=== PATIENT | female | born 1940 | race Caucasian/White ===

== ENCOUNTER → 2018-05-07 11:43 | Outpatient (CLI) | payer MEDICARE, MEDICAID, SELFPAY ==
--- NOTE | 2018-05-07 11:52 | XR_ITS ---
XR chest 2V HISTORY: ITS.REASON: COPD EXACERBATION ORDERING PHYSICIAN: Costa Stout MD PATIENT AGE: 77 years COMPARISON: 09/23/2016 FINDINGS: The cardiomediastinal silhouette and pulmonary vascularity are within normal limits. There are chronic changes in the lung bases. No lobar consolidation or collapse. There is a small hiatal hernia. Mild degenerative changes are present in the thoracic spine. impression: No change no acute finding.
== END ==
PROVIDERS: PCP Family Medicine; Visit Provider Family Medicine
DX: J44.1 Chronic obstructive pulmonary disease with (acute) exacerbation (principal)
CPT/HCPCS: 71046

== ENCOUNTER → 2018-10-25 13:53 | Outpatient (CLI) | payer MEDICARE, MEDICAID, SELFPAY ==
[2018-10-25 17:54] LABS: Potassium 5.4 mmoL/L (3.5-5.1)
== END ==
PROVIDERS: Visit Provider Family Medicine
DX: E87.5 Hyperkalemia (principal)
CPT/HCPCS: 84132

== ENCOUNTER → 2019-05-15 11:06 | Outpatient (CLI) | payer MEDICARE, MEDICAID, SELFPAY ==
--- NOTE | 2019-05-15 11:13 | XR_ITS ---
PROCEDURE: XR RIBS RT MIN 3V W CXR1V CLINICAL INDICATION: RT RIB PAIN Right rib pain following injury COMPARISON: CXR CHEST(2 VIEWS-NOT PORTABLE) from 06/29/2015 CXR CHEST(2 VIEWS-NOT PORTABLE) from 09/23/[address] CHEST W/ CONTRAST from 09/30/2016 CXR2V XR chest 2V from 05/07/2018 FINDINGS: Frontal view of the chest shows a hiatal hernia. Normal heart size. No evidence of pneumothorax. Multiple views of the right ribs show no obvious fracture or dislocation or other significant anomaly. IMPRESSION: Negative right ribs Dictated by: Carlton Ghosh MD 05/15/2019 11:50 Electronically signed by Carlton Ghosh MD in [place] 05/15/2019 11:50
--- NOTE | 2019-05-15 11:13 | XR_ITS ---
PROCEDURE: XR WRIST RT MIN 3V CLINICAL INDICATION: RT WRIST PAIN Posttraumatic pain COMPARISON: No exams were available for comparison FINDINGS: No fracture, dislocation, lytic change, or blastic change evident. No significant degenerative change. There are osteoarthritic changes of the 1st metacarpophalangeal joint IMPRESSION: No acute findings. Dictated by: Carlton Ghosh MD 05/15/2019 11:52 Electronically signed by Carlton Ghosh MD in [facility] 05/15/2019 11:52
== END ==
PROVIDERS: PCP Family Medicine; Visit Provider Physician Assistant
DX: R07.81 Pleurodynia (principal); M25.531 Pain in right wrist
CPT/HCPCS: 71101; 73110

== ENCOUNTER → 2019-07-29 15:48 | Outpatient (CLI) | payer MEDICARE, MEDICAID, SELFPAY ==
--- NOTE | 2019-07-29 15:56 | XR_ITS ---
PROCEDURE: XR LUMBAR SPINE MIN 4V CLINICAL INDICATION: RT SIDED SCIATICA Right hip pain, right-sided back pain COMPARISON: ABDPELW CT ABD PELVIS W/ CONTRAST from 07/06/2014 FINDINGS: No acute fracture or dislocation. There is degenerative disc disease from L1-S1. The lumbosacral junction is not well delineated and may be better evaluated with CT or MRI. Facet arthritic changes are present in the lower lumbar spine. Osteoarthritic changes are present involving the right hip IMPRESSION: Degenerative changes, no acute finding. Dictated by: Carlton Ghosh MD 07/29/2019 16:15 Electronically signed by Carlton Ghosh MD in [place] 07/29/2019 16:15
== END ==
PROVIDERS: PCP Family Medicine; Visit Provider Family Medicine
DX: M54.31 Sciatica, right side (principal)
CPT/HCPCS: 72110

== ENCOUNTER → 2019-08-27 09:53 | Outpatient (CLI) | payer MEDICARE, MEDICAID, SELFPAY ==
[2019-08-27 10:06] LABS: Adenovirus,PCR Not Detected (NotDetected); Bordetella Pertussis Not Detected (NotDetected); Chlamydophila Pneumoniae, PCR Not Detected (NotDetected); Coronavirus 229E Not Detected (NotDetected); Coronavirus NL63 Not Detected (NotDetected); Coronavirus OC43 Not Detected (NotDetected); Coronovirus HKU1,PCR Not Detected (NotDetected); Human Metapneumovirus Not Detected (NotDetected); Influenza A, PCR Not Detected (NotDetected); Influenza AH1, 2009 Not Detected (NotDetected); Influenza AH1, PCR Not Detected (NotDetected); Influenza AH3,PCR Not Detected (NotDetected); Influenza B, PCR Not Detected (NotDetected); Mycoplasma Pneumoniae, PCR Not Detected (NotDetected); Parainfluenza 1, PCR Not Detected (NotDetected); Parainfluenza 2, PCR Not Detected (NotDetected); Parainfluenza 3, PCR Not Detected (NotDetected); Parainfluenza 4, PCR Not Detected (NotDetected); Respiratory Syncytial Virus Not Detected (NotDetected); Rhinovirus/Enterovirus Not Detected (NotDetected)
== END ==
PROVIDERS: Visit Provider Family Medicine
DX: J06.9 Acute upper respiratory infection, unspecified (principal); R05 Cough; Z20.828 Contact with and (suspected) exposure to other viral communicable diseases
CPT/HCPCS: 87486; 87581; 87633; 87798

== ENCOUNTER → 2020-01-08 14:52 | Outpatient (CLI) | payer MEDICARE, MEDICAID, SELFPAY ==
--- NOTE | 2020-01-08 | XR_ITS ---
PROCEDURE: XR CHEST AP CLINICAL HISTORY: Cough and congestion, shortness of breath COMPARISON: CXR CHEST(2 VIEWS-NOT PORTABLE) from 09/23/[address] CHEST W/ CONTRAST from 09/30/2016 CXR2V XR chest 2V from 05/07/2018 XR RIBS RT MIN 3V W CXR1V from 05/15/2019 FINDINGS: Borderline cardiomegaly without failure. Hiatal hernia. There is ill-defined increased density in the right upper lobe in the suprahilar region measuring 2.8 by 2.3 cm. The remaining lungs are clear. No acute bony abnormalities. IMPRESSION: Ill-defined increased density in the right suprahilar region. Consider chest CT for further evaluation. Possibilities include scarring, neoplasm, or infiltrate. Dictated by: Carlton Ghosh MD 01/09/2020 08:21 Electronically signed by Carlton Ghosh MD in [place] 01/09/2020 08:21
[2020-01-08 15:24] LABS: Basophils % 0.8 % (0.1-2.0); Eosinophils # 0.2 K/mm3 (0.0-0.4); Eosinophils % 3.1 % (0.1-12.0); Hematocrit 37.5 % (37.0-47.0); Hemoglobin 12.2 g/dL (12.2-16.2); Lymphocytes # 1.9 K/mm3 (0.7-4.5); Lymphocytes % 37.7 % (10-50); Mean Corpuscular HGB Conc 32.4 g/dL (31.8-35.4); Mean Corpuscular Hemoglobin 29.4 pg (27.0-31.2); Mean Corpuscular Volume 90.5 fl (81-99); Mean Platelet Volume 7.3 fl (7.4-10.4); Monocytes # 0.5 K/mm3 (0.1-1.0); Neutrophils # 2.4 K/mm3 (1.8-7.8); Neutrophils % 48.4 % (37.0-80.0); Platelet Count 303 K/mm3 (142-424); Red Blood Count 4.15 M/mm3 (4.20-5.40); Red Cell Distribution Width 12.8 % (11.5-17.5); White Blood Count 4.9 K/mm3 (4.8-10.8)
[2020-01-10 13:33] LABS: Covid-19 Nasal PCR Sendout Lex NOT DETECTED
== END ==
PROVIDERS: PCP Family Medicine; Visit Provider Family Medicine
DX: Z03.818 Encounter for observation for suspected exposure to other biological agents ruled out (principal); R05 Cough; R06.02 Shortness of breath
CPT/HCPCS: 36415; 71045; 85025; U0004

== ENCOUNTER → 2020-01-15 12:00 | Outpatient (CLI) | payer MEDICARE, MEDICAID, SELFPAY | PROVIDERS: PCP Family Medicine; Visit Provider Family Medicine | DX: Z01.818 Encounter for other preprocedural examination (principal) | CPT/HCPCS: 36415; 82565; 84520 ==

== ENCOUNTER → 2020-01-16 13:32 | Outpatient (CLI) | payer MEDICARE, MEDICAID, SELFPAY ==
[2020-01-15 11:38] LABS: Blood Urea Nitrogen 14 mg/dl (7-17); Estimated Glomerular Filt Rate 70 ml/min (>60); GFR (African American) 84 ML/MIN (>60)
--- NOTE | 2020-01-16 13:39 | CT_ITS ---
PROCEDURE: CT CHEST W CON CLINCAL INDICATION: ABN CXR,COUGH Hoarseness, cough, abnormal chest x-ray, shortness of COMPARISON: [facility] CT CHEST W/ CONTRAST from 09/30/2016 XR CHEST AP from 01/08/2020 TECHNIQUE: IV Contrast: 75ml Optiray 350 Axial images obtained with sagittal and coronal reformats. All CT scans at the facility use one or more dose reduction, viz: automated exposure control, ma/kV adjustment per patient size (including targeted exams where dose is matched to indication, i.e. head), or iterative reconstruction technique. FINDINGS: HEART AND MEDIASTINAL STRUCTURES: Coronary artery calcifications are present. No mediastinal or hilar mass is evident. No evidence of pulmonary embolus or aortic aneurysm. There is a moderate-sized hiatal hernia with thickening of the GE junction which is nonspecific. LUNGS AND PLEURAL SPACES: There are scattered atelectatic or fibrotic changes. No lobar consolidation or collapse. No suspicious nodules are evident. The abnormality noted in the suprahilar region on the previous radiograph may have been due to an area of pneumonia which has improved BONY STRUCTURES: No acute bony abnormalities apparent. UPPER ABDOMEN: Degenerative changes thoracic spine with kyphosis ADDITIONAL FINDINGS: No other significant abnormalities. IMPRESSION: 1. No acute finding. Previously noted abnormality on the radiograph may have been due to an area of pneumonia which has resolved. 2. Moderate-sized hiatal hernia Dictated by: Carlton Ghosh MD 01/17/2020 12:26 Electronically signed by Carlton Ghosh MD in [place] 01/17/2020 12:26
== END ==
PROVIDERS: PCP Family Medicine; Visit Provider Family Medicine
DX: R93.89 Abnormal findings on diagnostic imaging of other specified body structures (principal); R05 Cough
CPT/HCPCS: 36415; 71260; 82565; 84520; Q9967

== ENCOUNTER 2020-09-24 06:42 | Observation (INO) | payer MEDICARE, MEDICAID, SELFPAY ==
[2020-09-24] VITALS (25 sets, daily range): BP systolic 114–200; BP diastolic 51–97; PULSE 60–86; RESP 14–22; TEMP 36.6–36.9; O2SAT 90–99; BMI 31.9; BMI 32.9
--- NOTE | 2020-09-24 | IR_ITS ---
APPROVED REPORT Patient Location: Emergent Pattern Setter: SUKHI Gan RT (R) PROCEDURES Left heart catheterization Left ventriculogram Selective coronary angiogram INDICATION Unstable angina Informed consent was obtained prior to the procedure. COMPLICATIONS None Estimated Blood Loss: Less than 10 mls TECHNIQUE One percent lidocaine used to anesthetize the right anterior aspect of the wrist. The right radial artery was accessed via the Seldinger technique. A 6 [place] sheath was placed in the right radial artery. 2.5 mg of verapamil, 800 mcg of nitroglycerin, 1mg Lidocaine and 5000 U Heparin were given through the arterial sheath. The trap catheter was also used to perform left heart catheterization, left ventriculogram and selective coronary angiogram. At the end of the procedure the sheath was removed good hemostasis was achieved using Traclet band, patient was transferred to the postop holding area in stable condition. ANGIOGRAPHIC RESULTS The left main artery Normal The left anterior descending artery Is mild 10% proximal and mid vessel luminal irregularities The circumflex artery Is mild diffuse 10% luminal irregularities The right coronary artery Dominant with mild 10% luminal irregularities The [place] ventriculogram reveals Hyperdynamic at 75% The left ventricular end-diastolic pressure 30 mmHg IMPRESSION Mild nonflow limiting coronary artery disease Hyperdynamic ventricle consistent with diastolic dysfunction accompanied by moderate to severely elevated LVEDP PLAN 1. Treatment of diastolic dysfunction with diuretics and negative chronotropic drugs Electronically signed by : Lewis Dallas, 09/24/2020 09:03:24
--- NOTE | 2020-09-24 06:48 | XR_ITS ---
PROCEDURE: XR CHEST 2V CLINICAL HISTORY: CP Chest pain COMPARISON: DX CXR2V XR chest 2V from 05/07/2018 CR XR RIBS RT MIN 3V W CXR1V from 05/15/2019 CR XR CHEST AP from 01/08/[address] CHEST W CON from 01/16/2020 FINDINGS: The cardiomediastinal silhouette and pulmonary vascularity are within normal limits. Increased markings are once again noted in the right upper lobe having a similar appearance on 01/08/2020. Subsequent chest CT did not demonstrate any significant abnormality at this region. No lobar consolidation or collapse. Thoracic kyphosis IMPRESSION: As above, no acute finding Dictated by: Carlton Ghosh MD 09/24/2020 07:37 Carlton Ghosh MD in [place] 09/24/2020 07:37
[2020-09-24 07:09] LABS: Basophils % 0.4 % (0.1-2.0); Eosinophils # 0.1 K/mm3 (0.0-0.4); Eosinophils % 1.2 % (0.1-12.0); Hematocrit 40.4 % (37.0-47.0); Hemoglobin 13.4 g/dL (12.2-16.2); Lymphocytes # 1.9 K/mm3 (0.7-4.5); Lymphocytes % 18.1 % (10-50); Mean Corpuscular HGB Conc 33.1 g/dL (31.8-35.4); Mean Corpuscular Hemoglobin 29.3 pg (27.0-31.2); Mean Corpuscular Volume 88.4 fl (81-99); Mean Platelet Volume 7.5 fl (7.4-10.4); Monocytes # 0.7 K/mm3 (0.1-1.0); Monocytes % 6.8 % (1.7-9.3); Neutrophils # 7.6 K/mm3 (1.8-7.8); Neutrophils % 73.4 % (37.0-80.0); Platelet Count 300 K/mm3 (142-424); Red Blood Count 4.57 M/mm3 (4.20-5.40); Red Cell Distribution Width 13.4 % (11.5-17.5); White Blood Count 10.3 K/mm3 (4.8-10.8)
--- NOTE | 2020-09-24 07:15 | HMH.EDCP ---
ED Disposition Clinical Impression: Unstable angina pectoris Disposition: Admitted as Observation Condition on Discharge: Good Referrals: Costa Stout MD [Primary Care Provider] - - Critical Care Critical Care Time: No Attestation: On 09/24/20, the high probability of a clinically significant, sudden or life threatening deterioration of the following system(s) required my full and direct attention, intervention and personal management. The time I documented below is in addition to time spent performing reported procedures but includes the following listed in this critical care notation. Medical Decision Making - Medical Records Medical records reviewed: Yes: I reviewed the patient's medical records. - El Inquiry Pt receiving controlled substance: No Vital Signs: 09/24/20 06:43 09/24/20 07:09 Temperature 98.0 F Temperature Source Oral Pulse Rate 73 Pulse Rate [Right] 80 Respiratory Rate 14 Blood Pressure 174/81 H Blood Pressure [Right Arm] 200/97 H Blood Pressure Mean 112 Blood Pressure Mean [Right Arm] 131 02 Sat by Pulse Oximetry 94 L 98 Oxygen Delivery Method Nasal Cannula Oxygen Flow Rate (LPM) 2 - Lab Data Lab results reviewed: Yes: I reviewed the patient's lab results. Lab Results 09/24/20 06:40: WBC 10.3, RBC 4.57, Hgb 13.4, Hct 40.4, MCV 88.4, MCH 29.3, MCHC 33.1, RDW 13.4, Plt Count 300, MPV 7.5, Neut % (Auto) 73.4, Lymph % (Auto) 18.1, [place] % (Auto) 6.8, Eos % (Auto) 1.2, Baso % (Auto) 0.4, Neut # (Auto) 7.6, Lymph # (Auto) 1.9, [place] # (Auto) 0.7, Eos # (Auto) 0.1, Baso # (Auto) 0.0 09/24/20 06:40: Sodium 135 L, Potassium 4.0, Chloride 105, Carbon Dioxide 23, Anion Gap 11.0, BUN 21 H, Creatinine 0.70, Estimated Creat Clear 67, Estimated GFR 81, Est GFR ( Amer) 98, Glucose 113 H, Calcium 9.2, Total Bilirubin 0.7, AST 23, ALT 12, Alkaline Phosphatase 160 H, C-Reactive Protein 9.6 H, Total Protein 7.0, Albumin 4.2, Globulin 2.8, Albumin/Globulin Ratio 1.5 Result diagrams: 09/24/20 06:40 09/24/20 06:40 Orders (Tests/Meds): ED MEDICATIONS Generic Name Dose Route Start Last Admin Trade Name Freq PRN Reason Stop Dose Admin Sodium Chloride 1,000 mls @ 999 mls/hr 09/24/20 07:00 09/24/20 06:54 Sod Chlor 0.9% 1000ml Bag IV 09/24/20 08:00 999 mls/hr .Q1H1M DANISH Administration Nitroglycerin 0.4 mg 09/24/20 06:50 09/24/20 06:51 Nitroglycerin 0.4mg Sl Tablet SL 10/24/20 06:49 0.4 mg Q5MINP PRN Administration Chest Pain Discontinued Medications Generic Name Dose Route Start Last Admin Trade Name Freq PRN Reason Stop Dose Admin Aspirin 324 mg 09/24/20 06:50 09/24/20 06:51 Aspirin 81mg Chewable Tablet PO 09/24/20 06:51 324 mg ONCE ONE Administration Morphine Sulfate 4 mg 09/24/20 07:27 Morphine 4mg/Ml Syringe IV 09/24/20 07:28 ONCE ONE Nitroglycerin 1 gm 09/24/20 06:56 09/24/20 06:57 Nitroglycerin 1 Gm Ointment TD 09/24/20 06:57 1 gm ONCE ONE Administration Ondansetron HCl 4 mg 09/24/20 07:27 Ondansetron 4mg/2ml Vial IV 09/24/20 07:28 ONCE ONE ORDERS Category Date Time Status Chest XR 2 view (NOT portable) [XR chest 2V] Stat Exams 09/24/20 06:48 Taken C-Reactive Protein Stat Lab 09/24/20 06:40 Results Complete Blood Count Auto Diff Stat Lab 09/24/20 06:40 Results Comprehensive Metabolic Panel Stat Lab 09/24/20 06:40 Results Erythrocyte Sedimentation Rate Stat Lab 09/24/20 06:40 Results Full Resp Panel w/COVID ([facility]) Routine Lab 09/24/20 07:10 Received Procalcitonin Stat Lab 09/24/20 06:40 Received Troponin I Q3H Lab 09/24/20 10:00 Ordered Troponin I Q3H Lab 09/24/20 13:00 Ordered Troponin I Stat Lab 09/24/20 06:40 Results - Radiology Data #1 Image(s): Chest Image Reviewed: Yes I reviewed the patient's radiology image Preliminary Findings: Normal/NAD - ECG Data Tracing #1 Normal Sinus Rhythm: Yes Ischemic changes: non-specific ST-T wave changes
[2020-09-24 07:17] LABS: Alanine Aminotransferase 12 U/L (12-78); Albumin Level 4.2 g/dl (3.5-5.0); Albumin/Globulin Ratio 1.5 (1.1-1.8); Alkaline Phosphatase 160 U/L (38-126); Aspartate Amino Transferase 23 U/L (14-36); Bilirubin,Total 0.7 mg/dl (0.2-1.3); Blood Urea Nitrogen 21 mg/dl (7-17); Calcium 9.2 mg/dl (8.4-10.2); Carbon Dioxide 23 mmol/L (22.0-30.0); Chloride 105 mmol/L (98-107); Creatinine Clearance Estimated 67 mL/min (50-200); Estimated Glomerular Filt Rate 81 ml/min (>60); GFR (African American) 98 ML/MIN (>60); Globulin 2.8 g/dL (1.3-3.2); Glucose 113 mg/dl (74-100); Sodium 135 mmol/L (136-145)
[2020-09-24 07:19] LABS: Adenovirus,PCR Not Detected (NotDetected); Bordetella Pertussis Not Detected (NotDetected); Chlamydophila Pneumoniae, PCR Not Detected (NotDetected); Coronavirus 19, PCR Not Detected (NotDetected); Coronavirus 229E Not Detected (NotDetected); Coronavirus NL63 Not Detected (NotDetected); Coronavirus OC43 Not Detected (NotDetected); Coronovirus HKU1,PCR Not Detected (NotDetected); Human Metapneumovirus Not Detected (NotDetected); Influenza A, PCR Not Detected (NotDetected); Influenza AH1, 2009 Not Detected (NotDetected); Influenza AH1, PCR Not Detected (NotDetected); Influenza AH3,PCR Not Detected (NotDetected); Influenza B, PCR Not Detected (NotDetected); Mycoplasma Pneumoniae, PCR Not Detected (NotDetected); Parainfluenza 1, PCR Not Detected (NotDetected); Parainfluenza 2, PCR Not Detected (NotDetected); Parainfluenza 3, PCR Not Detected (NotDetected); Parainfluenza 4, PCR Not Detected (NotDetected); Respiratory Syncytial Virus Not Detected (NotDetected); Rhinovirus/Enterovirus Not Detected (NotDetected)
[2020-09-24 07:23] LABS: C-Reactive Protein 9.6 mg/L (0-4)
--- NOTE | 2020-09-24 07:25 | PC.NURSE ---
7 mins left on the trop per jessie in lab
--- NOTE | 2020-09-24 07:29 | PC.NURSE ---
dr do noonan
[2020-09-24 07:33] LABS: Troponin I < 0.01 ng/ml (0.00-0.034)
--- NOTE | 2020-09-24 07:35 | PC.NURSE ---
Dr Rosales speaking with Dr Dallas.
[2020-09-24 07:36] LABS: Procalcitonin 0.059 ng/mL (0.0-2.0)
--- NOTE | 2020-09-24 07:39 | PC.NURSE ---
dr vizcarra spoke with dr lei
[2020-09-24 07:44] LABS: Erythrocyte Sedimentation Rate 20 mm/hr (0-30)
--- NOTE | 2020-09-24 07:51 | PC.NURSE ---
pt and family at bedside updated on plan of care
--- NOTE | 2020-09-24 07:54 | PC.NURSE ---
label press operator called and informed that dr welch wants pt to label press operator first this am
--- NOTE | 2020-09-24 08:00 | PC.NURSE ---
prepped patient for medical lab scientist per hospital procedure
--- NOTE | 2020-09-24 08:07 | PC.NURSE ---
catholic priest staff at bedside
--- NOTE | 2020-09-24 08:11 | PC.NURSE ---
Pt to agricultural labor camp manager.
--- NOTE | 2020-09-24 08:13 | CA_ITS ---
APPROVED REPORT EXAM: Comprehensive 2D, Doppler, and color-flow Echocardiogram Bakery Machine Mechanic Supervisor: Carey Torres, MARGARET, RVS Ht: 5 ft 6 in Wt: 198lbs BSA: 1.99 BP: 174/81 mmHg Indications: CP,HTN,HLD,+Family hx-cad, S/p cardiac cath 2D Dimensions IVSd 1.07 cm LVEF (Visual) 56.40 % PWd 1.07 cm LA Volume 59.40 mL LVDd 4.81 cm LA Volume Index 29.80 mL/m2 (M/F) 16-34 LVDs 3.39 cm Aortic Root 2.68 cm Left Atrium 3.14 cm LVOT 1.77 cm (M/F) 1.5-2.5 M-Mode Dimensions LA Diam 5.13 cm (1.9-4.0) Ao Diam 2.82 cm (2.0-3.7) TAPSE 1.52 (<1.7) LV Diastology E Decel Time 283.00 (160-240 msec) E/A Ratio 0.81 MED E' 7.10 (< 7 cm/sec) MED A' 9.10 cm/s E'/MED E' Ratio 8.08 (>14) LAT E' 7.60 (<10 cm/sec) LAT A' 10.90 cm/s E/LAT E' Ratio 7.55 (>14) Aortic Valve AO Peak GR. 8.10 mmHg Mitral Valve MV E Max Richard. 57.00 (40-130 cm/s) MV A Velocity 71.00 (40-130 cm/s) E/A Ratio 0.81 MV Decel. Time 283.00 (160-240 ms) MV Mean Gr. 1.20 (<2mmHg) MV PHT 83.00 ms Pulmonary Valve PV Peak Velocity 88.00 (50-150 cm/s) Tricuspid Valve TR P. Velocity 254.00 cm/s RAP Estimate 10.00 mmHg RVSP 35.80 mmHg Left Ventricle Technically difficult study because of the patient fact in poor acoustic windows. Left atrium is mildly enlarged, left ventricle is normal size, there is mild concentric left ventricular hypertrophy, visually estimated ejection fraction 50% with no regional wall motion abnormality, grade 1 diastolic dysfunction seen without tissue Doppler evidence of raise left atrial pressure. Right Ventricle Right atrium and right ventricle are mildly enlarged with normal contractility. Aortic Valve Aortic valve is minimally thickened and fibrosed, there is no aortic stenosis or aortic insufficiency. Mitral Valve Mitral valve is grossly normal, there is mild mitral regurgitation. Tricuspid Valve Tricuspid grossly normal, there is mild tricuspid regurgitation, calculated right ventricular systolic pressure is 36 mmHg. Pulmonic Valve Pulmonic valve is poorly visualized. Great Vessels Aortic root is normal size. Pericardium No significant pericardial effusion noted. Conclusion 1. Biatrial enlargement, normal left ventricular size, mild concentric left ventricular hypertrophy, visually estimated ejection fraction 50% with no regional wall motion abnormality, grade 1 diastolic dysfunction seen without tissue Doppler evidence of raise left atrial pressure. 2. Mildly enlarged right ventricle with normal contractility. 3. Mild mitral and tricuspid regurgitation, calculated right ventricular systolic pressure 36 mmHg. 4. No significant pericardial effusion noted. Electronically signed by : Narinder Peguero, 09/24/2020 16:34:04
--- NOTE | 2020-09-24 08:21 | HMH.PHAVTE ---
[facility] Pharmacy VTE Monitoring - Patient Demographics Admission date: 09/24/20 Report Date: 09/24/20 Time: 08:21 Allergies/Adverse Reactions: Patient Allergies No Known Allergies Allergy (Unverified 06/20/17 14:26) Height: 1.68 m Weight: 89.811 kg Patient Problems: Current Active Problems Unstable angina pectoris (Acute) - VTE Risk Labs: VTE Related Lab Results Hgb 13.4 g/dL (12.2-16.2) 09/24/20 06:40 Hct 40.4 % (37.0-47.0) 09/24/20 06:40 Plt Count 300 K/mm3 (142-424) 09/24/20 06:40 BUN 21 mg/dl (7-17) H 09/24/20 06:40 Creatinine 0.70 mg/dl (0.52-1.04) 09/24/20 06:40 Estimated Creat Clear 67 mL/min (50-200) 09/24/20 06:40 - Prophylaxis VTE Prophylaxis Ordered?: Yes Types of VTE Prophylaxis: TEDS Knee High Location of Applied Device: Bilateral Lower Extremeties
--- NOTE | 2020-09-24 09:16 | HMH.PHAINT ---
verified home medication list using outpatient pharmacy list and pt interview
--- NOTE | 2020-09-24 09:34 | HMH.CNCARD ---
<Bella Lopez - Last Filed: 09/24/20 09:55> History of Present Illness Consult date: 09/24/20 Requesting physician: Jorje Rosales Consult reason: chest pain Chief complaint: chest pain History of present illness: This is a 79-year-old white female who presented to the emergency department with complaints of chest pain. The patient states that the chest pain woke her up around 230 this morning. She describes it as a sharp, pressure sensation in the substernal aspect of her chest. She states that the pain was constant when it woke her up. She states that this was a moderate pain. The patient states that the pain did not radiate. It was associated with shortness of breath and diaphoresis. She states that the chest pain lasted several hours and did not resolve. She has a history of hypertension and hyperlipidemia. She also has a family history of ischemic heart disease. [facility] History I have reviewed the patient's past medical history: Yes Medical History: Reports:: Hyperlipidemia, Hypertension *Have you ever received a pneumonia vaccine?: Yes *Have you received a flu vaccine this season?: Yes Laterality Cases: Right: Arthroscopy Knee - *Social History Smoking Status: Never smoker Alcohol Intake: never *Occupational Status:: other Housing: other Household Members: other *Travel in the last 8 weeks: None Family Hx:: Coronary Artery Disease Meds Home Medications Medication Instructions Recorded Confirmed Type Ferrous Sulfate [Ferrous Sulfate 325 mg PO BID 09/24/20 09/24/20 History 325mg Tab] Fluticasone Propionate 1 spr NOSTRIL-B DAILY 09/24/20 09/24/20 History Levothyroxine Sodium [Euthyrox] 50 mcg PO DAILY 09/24/20 09/24/20 History Losartan Potassium [Cozaar 100mg 100 mg PO DAILY 09/24/20 09/24/20 History Tablets] Omeprazole [Omeprazole 40mg 40 mg PO DAILY 09/24/20 09/24/20 History Capsule] Pravastatin Sodium [Pravachol 40mg 40 mg PO HS 09/24/20 09/24/20 History Tablet] Propranolol HCl [Propranolol HCl 240 mg PO DAILY 09/24/20 09/24/20 History ER] Umeclidinium Brm/Vilanterol Tr 1 puff IH DAILY 09/24/20 09/24/20 History [Anoro Ellipta 62.5-25 Mcg INH] Allergies Allergy/AdvReac Type Severity Reaction Status Date / Time No Known Allergies Allergy Unverified 06/20/17 14:26 Exam Vital signs and Labs for Last 24 Hours: Temp Pulse Resp BP Pulse Ox 98 F 72 18 115/66 98 09/24/20 09:00 09/24/20 09:21 09/24/20 09:15 09/24/20 09:15 09/24/20 09:15 Laboratory Results - last 24 hr 09/24/20 06:40: WBC 10.3, RBC 4.57, Hgb 13.4, Hct 40.4, MCV 88.4, MCH 29.3, MCHC 33.1, RDW 13.4, Plt Count 300, MPV 7.5, Neut % (Auto) 73.4, Lymph % (Auto) 18.1, [place] % (Auto) 6.8, Eos % (Auto) 1.2, Baso % (Auto) 0.4, Neut # (Auto) 7.6, Lymph # (Auto) 1.9, [place] # (Auto) 0.7, Eos # (Auto) 0.1, Baso # (Auto) 0.0, ESR 20 09/24/20 06:40: Sodium 135 L, Potassium 4.0, Chloride 105, Carbon Dioxide 23, Anion Gap 11.0, BUN 21 H, Creatinine 0.70, Estimated Creat Clear 67, Estimated GFR 81, Est GFR ( Amer) 98, Glucose 113 H, Calcium 9.2, Total Bilirubin 0.7, AST 23, ALT 12, Alkaline Phosphatase 160 H, Troponin I < 0.01, C-Reactive Protein 9.6 H, Total Protein 7.0, Albumin 4.2, Globulin 2.8, Albumin/Globulin Ratio 1.5 09/24/20 06:40: Procalcitonin 0.059 09/24/20 07:10: Chlamy pneumoniae PCR Not detected, Adenovirus (PCR) Not detected, B. pertussis DNA (PCR) Not detected, Coronavirus OC43 (PCR) Not detected, Coronavirus HKU1 (PCR) Not detected, Coronavirus 229E (PCR) Not detected, SARS-CoV-2 (PCR) Not detected, Coronavirus NL63 (PCR) Not detected, Human Metapneumovir PCR Not detected, Influenza A (H1) PCR Not detected, Influ A (H1N1/09) PCR Not detected, Influenza A (H3) PCR Not detected, Influenza Type A (PCR) Not detected, Influenza Type B (PCR) Not detected, M. pneumoniae (PCR) Not detected, Parainfluenza 1 (PCR) Not detected, Parainfluenza 2 (PCR) Not detected, Parainfluenza 3 (PCR) Not detected, Parain
--- NOTE | 2020-09-24 13:16 | PC.NURSE ---
Dr. Stout was here today at 1:15 to see 201.
--- NOTE | 2020-09-24 13:33 | HMH.HP ---
*Admission Date: 09/24/20 <Lydia Chamorro 09/24/20 13:42> *Chief complaint: chest pain <Lydia Chamorro 09/24/20 13:42> *History of present illness: This is a 79-year-old white female who presented to the emergency department with complaints of chest pain. The patient states that the chest pain woke her up around 230 this morning. She describes it as a sharp, pressure sensation in the substernal aspect of her chest. She states that the pain was constant when it woke her up. She states that this was a moderate pain. The patient states that the pain did not radiate. It was associated with shortness of breath and diaphoresis. She states that the chest pain lasted several hours and did not resolve. She has a history of hypertension and hyperlipidemia. She also has a family history of ischemic heart disease. (above as per Bella Lopez) The patient's blood work was essentially unremarkable. Her troponin I was normal. Her C-reactive protein was mildly elevated at 9.6. She was taken directly to the [facility] due to her symptoms. They found mild nonflow limiting coronary artery disease with a hyperdynamic ventricle consistent with diastolic dysfunction accompanied by a moderate to severely elevated LVEDP. Cardiology recommended treatment of diastolic dysfunction with diuretics and negative chronotropic drugs. The patient was admitted and was given a dose of IV Lasix and started on diltiazem. <GaldinoAng mcclellana 09/24/20 13:42> [facility] History I have reviewed the patient's past medical history: Yes <Pedro PabloAngqasim Lizama 09/24/20 13:42> Medical History: Reports:: Chronic Obstructive Pulmonary Disease (COPD), Hyperlipidemia, Hypertension Denies:: Diabetes Mellitus Type 1, Diabetes Mellitus Type 2 <Lydia Chamorro 09/24/20 13:42> *Have you ever received a pneumonia vaccine?: Yes <Lydia Chamorro 09/24/20 13:42> *Have you received a flu vaccine this season?: Yes <Lydia Chamorro 09/24/20 13:42> Other Medical History: Reports: Anemia, Arthritis <Lydia Chamorro 09/24/20 13:42> Laterality Cases: Right: Arthroscopy Knee <Lydia Chamorro 09/24/20 13:42> Other Surgeries: Yes: Colonoscopy, EGD, Other (left ear skin lesion, breast bx) <Lydia Chamorro 09/24/20 13:42> - *Social History Last grade of school completed: 7th or 8th <Lydia Chamorro 09/24/20 13:42> Smoking Status: Never smoker <Lydia Chamorro 09/24/20 13:42> Alcohol Intake: never <Lydia Chamorro 09/24/20 13:42> *Occupational Status:: retired <Lydia Chamorro 09/24/20 13:42> Housing: house <Lydia Chamorro 09/24/20 13:42> Household Members: family <Lydia Chamorro 09/24/20 13:42> *Travel in the last 8 weeks: None <Lydia Chamorro 09/24/20 13:42> Family Hx:: No significant family history <Lydia Chamorro 09/24/20 13:42> Review of Systems - Constitutional Reports chills, Reports excessive sweating, Reports weakness, Denies fever(s) <Lydia Chamorro 09/24/20 13:42> - Eyes Denies blurry vision, Denies double vision <Lydia Chamorro 09/24/20 13:42> - ENT Reports nasal congestion, Denies sore throat <Lydia Chamorro 09/24/20 13:42> - *Cardiovascular Reports chest pain, Reports shortness of breath, Denies rapid, pounding, or irregular heartbeat <Lydia Chamorro 09/24/20 13:42> - *Respiratory Reports cough, Reports shortness of breath <Lydia Chamorro 09/24/20 13:42> - *Gastrointestinal Denies abdominal pain, Denies loose stools, Denies nausea, Denies vomiting <Lydia Chamorro 09/24/20 13:42> - *Genitourinary Denies difficulty urinating, Denies painful urination <Lydia Chamorro 09/24/20 13:42> - *Musculoskeletal Denies joint pain <Lydia Chamorro 09/24/20 13:42> - *Neurologic Reports headache(s), Reports weakness, Denies localized weakness, Denies seizure-like activity, Denies dizziness <Lydia Chamorro - 09/24/20 13:42> Meds Home Medications Medication Instructions Recorded Confirmed Type Ferrous Sulfate [Ferrous Sulfate 325 mg PO BID 09/24/
--- NOTE | 2020-09-24 18:47 | PC.NURSE ---
PT IS RESTING IN BED. NO COMPLAINTS OF DISCOMFORT. ALERT AND ORIENTED X4. PT HAS BEEN AMBULATING TO THE BATHROOM WITH WALKER. ALL CATH VSS. PT HAS DIURESED WELL THIS SHIFT. LUNG SOUNDS CLEAR. ABDOMEN SOFT/NON TENDER WITH ACTIVE BOWEL SOUNDS. DRESSING TO THE RT RADIAL SITE C/D/I. EATING AND DRINKING WELL. WILL CONTINUE TO MONITOR
--- NOTE | 2020-09-24 21:51 | PC.NURSE ---
Student nurse Courtney Vieyra will be providing care under my supervision.
[2020-09-25] VITALS (15 sets, daily range): BP systolic 90–153; BP diastolic 50–76; PULSE 40–83; RESP 14–18; TEMP 36.4–36.8; O2SAT 94–98; BMI 34.9
--- NOTE | 2020-09-25 | IR_ITS ---
APPROVED REPORT Patient Location: Inpatient Chemistry Intern: SUKHI Anderson RT (R) PROCEDURES 1. Pocket formation for Permanent Pacemaker Placement. 2. Placement of an atrial sensing and pacing coil into the right atrial appendage. 3. Placement of a ventricular sensing and pacing coil in the right ventricular apex. 4. Permanent Pacemaker Placement. INDICATION Paroxysmal Atrial Tachy Informed consent was obtained prior to the procedure. COMPLICATIONS None Estimated Blood Loss: Less than 10 mls TECHNIQUE 1% Lidocaine with epinephrine used to anesthetized the left anterior aspect of the chest. Scalpel was used to make the initial cutaneous incision while electrocautery was used to dissect down tinto the fascia. The fascia was lifted off the pectoralis muscle and digitally manipulated creating a pocket for the pacemaker. The patient was then placed in Trendelenburg position and the subclavian vein was accessed twice via the Selinger technique, there are two wires in the vein. A 6 Thai sheath was placed under fluoroscopic guidance into the subclavian vein over one of the wires while keeping the other wire in place within the subclavian vein. The dilator was removed from the sheath. Using fluoroscopic guidance, the ventricular lead was placed into the right ventricular apex, screwed and secured into place. Electronic interrogation proved acceptable thresholds and voltage within the lead. Using 3-0 silk, the ventricular lead was then secured into place. Lead was secured to the facia using the 3-0 silk. Following this, the sheath was pealed away. An additional 6 Thai fresh sheath and dilator was placed over the existing wire. Using fluoroscopic guidance, the atrial lead was the placed into the right atrial appendage and screwed and secured in place. Electrical interrogation demonstrated acceptable thresholds and voltage number. The atrial lead was then secured into place using 3-0 silk. 1 gram of Ancef was used to flush the pocket. Following the pacemaker generator being secured to the fascia and in place, Monocryl was used to close the subcutaneous layers while maddie were used to close the cutaneous layer. A pressure dressing was placed and the patient was transferred to the postop holding area in stable condition for postoperative care. INTERROGATION Generator Model number: ApnaPaisaCARRION DR, L331 Generator Serial number: [id number] Atrial lead model number: INGEVITY+ 45cm, 7840 Atrial lead serial number: [id number] P-wave: 6.0mV Impedence: 637 ohms Threshold: 1.0V@0.4ms Right Ventricular lead model number: INGEVITY+ 52cm, 7841 Right Ventricular lead serial number: [id number] R-wave: 15.0mV Impedence: 850 ohms Threshold: 1.0V@0.4ms Pacing Parameters: Mode: DDDR Base/Max Track: 70/130 ppm No diaphragmatic stimulation at 10 volts. IMPRESSION 1. Successful Pocket formation for Permanent Pacemaker Placement. 2. Successful Placement of an atrial sensing and pacing coil into the right atrial appendage. 3. Successful Placement of a ventricular sensing and pacing coil in the right ventricular apex. 4. Successful Permanent Pacemaker Placement. PLAN 1. follow up office visit, post op wound care Electronically signed by : Lewis Dallas, 09/29/2020 09:12:28
--- NOTE | 2020-09-25 03:54 | ECG_ITS ---
APPROVED REPORT Exam: Resting ECG HR:58 bpm ECG Measurements Heart Rate 58 AXES QRSd 118 QRS -11 QT 472 T 27 QTc 463 Conclusion Atrial fibrillation with slow ventricular response Left ventricular hypertrophy with QRS widening Nonspecific ST abnormality, probably digitalis effect Abnormal ECG Electronically signed by : Alphonse Chang, 09/25/2020 18:11:26
--- NOTE | 2020-09-25 05:33 | PC.NURSE ---
Pt c/o chest pain this am. Pt had previously noted to be in Afib. Pt was asked if she has ever had Afib in her past and she stated no. EKG was obtained and read by ER MD. manager call MD was notified. Pt stated, It feels like pleurisy. New orders received and carried out. Pt was administered toradol 15 mg IV once. Pt states that pain has improved. Pt has been bradycardic in addition to Afib. MD aware. HR noted to be as low as 40 on telemetry. Other VSS. Pt remains on RA. Crackles noted to Stevie bases. Urine output was 600 plus 2 unmeasured voids. She has ambulated to BR without difficulty. No other concerns at this time. Will continue to monitor.
[2020-09-25 07:38] LABS: Anion Gap 12.6 mEq/L (5-15); Blood Urea Nitrogen 19 mg/dl (7-17); Carbon Dioxide 25 mmol/L (22.0-30.0); Chloride 101 mmol/L (98-107); Chol/HDL Ratio 2.5 (1-3.5); Cholesterol 145 mg/dl (140-200); Creatinine Clearance Estimated 64 mL/min (50-200); Estimated Glomerular Filt Rate 54 ml/min (>60); GFR (African American) 65 ML/MIN (>60); Glucose 95 mg/dl (74-100); HDL Cholesterol 59 mg/dl (40-60); Magnesium 1.7 mg/dl (1.6-2.3); Potassium 3.6 mmoL/L (3.5-5.1); Sodium 135 mmol/L (136-145); Triglycerides 76 mg/dl (30-150); VLDL Cholesterol 15 mg/dL (0-40)
[2020-09-25 07:44] LABS: Basophils % 0.4 % (0.1-2.0); Eosinophils # 0.1 K/mm3 (0.0-0.4); Eosinophils % 1.2 % (0.1-12.0); Hematocrit 37.8 % (37.0-47.0); Hemoglobin 12.6 g/dL (12.2-16.2); Lymphocytes # 1.7 K/mm3 (0.7-4.5); Lymphocytes % 20.4 % (10-50); Mean Corpuscular HGB Conc 33.4 g/dL (31.8-35.4); Mean Corpuscular Hemoglobin 29.4 pg (27.0-31.2); Mean Platelet Volume 7.5 fl (7.4-10.4); Monocytes # 0.8 K/mm3 (0.1-1.0); Monocytes % 8.9 % (1.7-9.3); Neutrophils # 5.9 K/mm3 (1.8-7.8); Neutrophils % 69.2 % (37.0-80.0); Platelet Count 257 K/mm3 (142-424); Red Cell Distribution Width 13.4 % (11.5-17.5); White Blood Count 8.5 K/mm3 (4.8-10.8)
[2020-09-25 07:48] LABS: Direct LDL Cholesterol 47.32 mg/dL (100-129)
--- NOTE | 2020-09-25 08:41 | HMH.ACPN2 ---
<Lydia Chamorro - Last Filed: 09/25/20 08:41> Internal Medicine - PN: Subj *Date: 09/25/20 *Time: 08:41 Interval history: Patient states she had a rough night and morning. She went into A. fib and then this morning had some episodes of low blood pressure where she had chest pain, shortness of breath, and dizziness. Right now she is feeling a little bit better. She only ate a small amount of breakfast. She denies any chest pain at the moment. Exam Vital signs and Labs for Last 24 Hours: Temp Pulse Resp BP Pulse Ox 98.0 F 66 18 90/50 L 95 09/25/20 08:00 09/25/20 08:00 09/25/20 08:00 09/25/20 08:00 09/25/20 08:00 Laboratory Results - last 24 hr 09/24/20 07:10: Chlamy pneumoniae PCR Not detected, Adenovirus (PCR) Not detected, B. pertussis DNA (PCR) Not detected, Coronavirus OC43 (PCR) Not detected, Coronavirus HKU1 (PCR) Not detected, Coronavirus 229E (PCR) Not detected, SARS-CoV-2 (PCR) Not detected, Coronavirus NL63 (PCR) Not detected, Human Metapneumovir PCR Not detected, Influenza A (H1) PCR Not detected, Influ A (H1N1/09) PCR Not detected, Influenza A (H3) PCR Not detected, Influenza Type A (PCR) Not detected, Influenza Type B (PCR) Not detected, M. pneumoniae (PCR) Not detected, Parainfluenza 1 (PCR) Not detected, Parainfluenza 2 (PCR) Not detected, Parainfluenza 3 (PCR) Not detected, Parainfluenza 4 (PCR) Not detected, RSV (PCR) Not detected, Entero/Rhino (PCR) Not detected 09/25/20 07:09: WBC 8.5, RBC 4.30, Hgb 12.6, Hct 37.8, MCV 88.0, MCH 29.4, MCHC 33.4, RDW 13.4, Plt Count 257, MPV 7.5, Neut % (Auto) 69.2, Lymph % (Auto) 20.4, [place] % (Auto) 8.9, Eos % (Auto) 1.2, Baso % (Auto) 0.4, Neut # (Auto) 5.9, Lymph # (Auto) 1.7, [place] # (Auto) 0.8, Eos # (Auto) 0.1, Baso # (Auto) 0.0 09/25/20 07:09: Sodium 135 L, Potassium 3.6, Chloride 101, Carbon Dioxide 25, Anion Gap 12.6, BUN 19 H, Creatinine 1.00 D, Estimated Creat Clear 64, Estimated GFR 54 L, Est GFR ( Amer) 65 D, Glucose 95, Calcium 9.0, Magnesium 1.7, Triglycerides 76, Cholesterol 145, LDL Cholesterol Direct 47.32 L, VLDL Cholesterol 15, HDL Cholesterol 59, Cholesterol/HDL Ratio 2.5 I & O for Last 24 hours: Intake & Output 09/22/20 09/23/20 09/24/20 09/25/20 11:59 11:59 11:59 11:59 Intake Total 840 / 840 Output Total 1900 / 1900 Balance -1060 / -1060 Weight 198 lb 190 lb - Constitutional no acute distress - *Routine Respiratory Exam Present: wheezes (faint expiratory wheeze). Absent: rales - *Routine Cardiovascular Exam Present: irregular rhythm - *Routine Abdominal Exam Present: soft, normoactive bowel sounds. Absent: tenderness - *Routine Extremities Exam Absent: cyanosis, clubbing, edema - *Routine Skin Exam Present: warm. Absent: rash - *Routine Neurological Exam Present: alert, oriented X3 Assessment and Plan (1) Chest pain Status: Acute Category: Medical Code(s): R07.9 - Chest pain, unspecified (2) Diastolic dysfunction Status: Acute Category: Medical Code(s): I51.89 - Other ill-defined heart diseases (3) HTN (hypertension) Status: Chronic Category: Medical Code(s): I10 - Essential (primary) hypertension (4) Hyperlipemia Status: Chronic Category: Medical Code(s): E78.5 - Hyperlipidemia, unspecified (5) Obesity Status: Chronic Category: Medical Code(s): E66.9 - Obesity, unspecified (6) Family history of coronary artery disease Status: Chronic Category: Medical Code(s): Z82.49 - Family history of ischemic heart disease and other diseases of the circulatory system (7) Hypotension Status: Acute Category: Medical Code(s): I95.9 - Hypotension, unspecified (8) Atrial fibrillation Status: Acute Category: Medical Code(s): I48.91 - Unspecified atrial fibrillation - Assessment and plan all Dx Assessment and Plan for all problems:: Cardiology has been notified of patient's atrial fib and hypotension. They will adjust medications. <[facility]
--- NOTE | 2020-09-25 10:22 | HMH.PNCARD ---
Subjective Date: 09/25/20 Time: 09:00 Principal diagnosis: Chest pain Interval history: 79-year-old female admitted to [facility] with midsternal chest pain. Patient did undergo left heart catheterization yesterday which revealed mild nonflowing limiting CAD, hyperdynamic ventricle consistent with diastolic dysfunction. LVEDP was moderately to severely elevated. Medical management was noted. Patient was started on Lasix 40 mg IV twice daily for the LVEDP. Patient was also started on diltiazem ER 120 mg daily along with beta-levon due to coronary artery disease. PCP stated this a.m. that patient had had an episode in the [facility] where her heart rate had decreased into the 40s and with her heart rhythm was noted to be in atrial fibrillation. Patient has no history of atrial fibrillation. Patient was also hypotensive at that time. Patient had been complaining of some midsternal chest pain during this episode. Therefore PCP stopped calcium channel levon and beta-levon due to patient's heart rate and hypotension episode. During this assessment patient denies chest pain, tightness or pressure. Patient denies shortness of breath. No swelling noted of the lower extremities. Patient does state at times the chest pain that she was having felt more like a pleurisy pain. 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 EKG was performed which revealed normal sinus rhythm, left ventricular hypertrophic with QRS widening, abnormal ECG with a heart rate of 66 bpm. Echocardiogram was performed yesterday which revealed EF 50% with no regional wall motion abnormality. Mild mitral valve and tricuspid regurgitation. Overall patient states that she is feeling much better. Discussed plan of care with Dr. Dallas. Patient will be set up for a permanent pacemaker today due to tach and bradycardia syndrome. Discussed risk and benefits to the patient of undergoing procedure for PPM placement. Patient verbalized understanding and is agreeable to procedure. Pending on outcome of the PPM, medication changes may be recommended. Echo:Conclusion 1. Biatrial enlargement, normal left ventricular size, mild concentric left ventricular hypertrophy, visually estimated ejection fraction 50% with no regional wall motion abnormality, grade 1 diastolic dysfunction seen without tissue Doppler evidence of raise left atrial pressure. 2. Mildly enlarged right ventricle with normal contractility. 3. Mild mitral and tricuspid regurgitation, calculated right ventricular systolic pressure 36 mmHg. 4. No significant pericardial effusion noted. Thank you for allowing cardiology to participate in the care of this patient. Exam Vital signs and Labs for Last 24 Hours: Temp Pulse Resp BP Pulse Ox 98.0 F 66 18 90/50 L 95 09/25/20 08:00 09/25/20 08:00 09/25/20 08:00 09/25/20 08:00 09/25/20 08:00 Laboratory Results - last 24 hr 09/25/20 07:09: WBC 8.5, RBC 4.30, Hgb 12.6, Hct 37.8, MCV 88.0, MCH 29.4, MCHC 33.4, RDW 13.4, Plt Count 257, MPV 7.5, Neut % (Auto) 69.2, Lymph % (Auto) 20.4, [place] % (Auto) 8.9, Eos % (Auto) 1.2, Baso % (Auto) 0.4, Neut # (Auto) 5.9, Lymph # (Auto) 1.7, [place] # (Auto) 0.8, Eos # (Auto) 0.1, Baso # (Auto) 0.0 09/25/20 07:09: Sodium 135 L, Potassium 3.6, Chloride 101, Carbon Dioxide 25, Anion Gap 12.6, BUN 19 H, Creatinine 1.00 D, Estimated Creat Clear 64, Estimated GFR 54 L, Est GFR ( Amer) 65 D, Glucose 95, Calcium 9.0, Magnesium 1.7, Triglycerides 76, Cholesterol 145, LDL Cholesterol Direct 47.32 L, VLDL Cholesterol 15, HDL Cholesterol 59, Cholesterol/HDL Ratio 2.5 I & O for Last 24 hours: Intake & Output 09/22/20 09/23/20 09/24/20 09/25/20 23:59 23:59 23:59 23:59 Intake Total 480 / 480 360 / 360 Output Total 1300 / 1300 600 / 600 Balance -820 / -820 -240 / -240 Weight 180 lb 190 lb - Constitutional no acute distress, cooperative - *Routine HE
--- NOTE | 2020-09-25 10:39 | ECG_ITS ---
APPROVED REPORT Exam: Resting ECG HR:66 bpm ECG Measurements Heart Rate 66 AXES NV 178 P 26 QRSd 116 QRS -23 QT 444 T 42 QTc 465 Conclusion Normal sinus rhythm Left ventricular hypertrophy with QRS widening Abnormal ECG Electronically signed by : Alphonse Chang, 09/25/2020 18:10:44
--- NOTE | 2020-09-25 15:00 | XR_ITS ---
PROCEDURE: XR CHEST PORTABLE CLINICAL HISTORY: Confirm pacemaker/AID placement COMPARISON: CR XR RIBS RT MIN 3V W CXR1V from 05/15/2019 CR XR CHEST AP from 01/08/[address] CHEST W CON from 01/16/2020 CR XR CHEST 2V from 09/24/2020 FINDINGS: Has been interval insertion of a bipolar pacemaker from left subclavian approach. Right atrial and right ventricular leads are present in good position. There is no evidence of pneumothorax. There is cardiomegaly without failure. The lungs are clear without infiltrates, suspicious nodules, or pleural effusions. Mild osteoarthritic change left shoulder IMPRESSION: Status post pacemaker placement with good lead position and no evidence of pneumothorax Dictated by: Carlton Ghosh MD 09/25/2020 15:40 Carlton Ghosh MD in OV 09/25/2020 15:40
--- NOTE | 2020-09-25 15:31 | HMH.ANESCL ---
[facility] Anesthesia Checklist - Structural Data Admitted From: Home Planned Operative Procedure/s: Pacemaker placement Consent for Planned Operative Procedure(s) Verified: Yes Verified Documents: Surgical Consent, History and Physical - NPO Status Verified Time NPO: 00:00 - Airway Assessment C-Spine Mobility Assessed: Yes TMJ Mobility Assessed: Yes Dentition: Poor Dentition - Neurological Assessment Level of Consciousness: Awake, Alert - Anesthesia Plan Anesthesia Risk discussed: Yes Anesthesia Plan: Verified ASA Class: III Anesthesia Type: MAC [facility] History Medical History: Reports:: Chronic Obstructive Pulmonary Disease (COPD), Hyperlipidemia, Hypertension Denies:: Diabetes Mellitus Type 1, Diabetes Mellitus Type 2 *Have you ever received a pneumonia vaccine?: Yes *Have you received a flu vaccine this season?: Yes Other Medical History: Reports: Anemia, Arthritis Anesthesia experience/problems:: NAC Laterality Cases: Right: Arthroscopy Knee Other Surgeries: Yes: Colonoscopy, EGD, Other (left ear skin lesion, breast bx) - *Social History Last grade of school completed: 7th or 8th Smoking Status: Never smoker Alcohol Intake: never Substance Use Type: denies use *Occupational Status:: retired Housing: house Household Members: family *Travel in the last 8 weeks: None Family Hx:: No significant family history
--- NOTE | 2020-09-25 16:00 | PC.NURSE ---
Pt has been pleasant and cooperative this shift. A&O X4. No complaints of pain or SOA. Pt is post-operative from pacemaker placement. LT chest dressing is C/D/I. Pt is on room air with sats. >90%. Lungs CTA. No edema noted. Telemetry reveals NSR. (No PACER spikes noted thus far) Pt ambulates independently to/from the bathroom and throughout the room. Pt voids clear, yellow urine without issue. No BM this shift. 20 G peripheral IV in the LT AC is patent and SL. VSS. Call light within reach. Will continue to monitor.
--- NOTE | 2020-09-25 21:00 | PC.NURSE ---
pt had no needs,restock gloves in room and snacks. Paulina
[2020-09-26] VITALS: BP 123/69; PULSE 89; PULSE 90; RESP 16; TEMP 36.9; O2SAT 97
[2020-09-26 04:00] VITALS: BP 117/64; PULSE 90; PULSE 96; RESP 16; TEMP 36.8; O2SAT 94
--- NOTE | 2020-09-26 04:30 | PC.NURSE ---
Pt has slept at intervals this shift. Has c/i discomfort to legs and back. Pt states she hasn't been able to get comfortable in bed tonight. Medicated per mar and assisted with repositioning. Incision to (L) side of chest with DSG intact. No drainage. Bruising noted around DSG. Pt has ambulated to BR with walker and assist x1. Pt has tolerated well . Education given on Incision sites. VSS. Pt is sinus with pacer spikes noted. Was noted to be tachycardic this AM, but pt was experiencing pain during period. Pt HR has since decreased after pain medication administered and repositioned in bed. No other concerns at this time. will continue to monitor.
[2020-09-26 05:21] VITALS: BMI 34.9
--- NOTE | 2020-09-26 05:25 | PC.NURSE ---
pt has no needs. Ice water,trash,dirty linen and room straighten up.Paulina
[2020-09-26 07:10] LABS: Basophils % 0.3 % (0.1-2.0); Eosinophils # 0.2 K/mm3 (0.0-0.4); Eosinophils % 2.7 % (0.1-12.0); Hematocrit 37.4 % (37.0-47.0); Hemoglobin 12.6 g/dL (12.2-16.2); Lymphocytes # 1.9 K/mm3 (0.7-4.5); Lymphocytes % 26.3 % (10-50); Mean Corpuscular HGB Conc 33.8 g/dL (31.8-35.4); Mean Corpuscular Hemoglobin 29.4 pg (27.0-31.2); Mean Platelet Volume 8.3 fl (7.4-10.4); Monocytes # 0.8 K/mm3 (0.1-1.0); Monocytes % 11.1 % (1.7-9.3); Neutrophils # 4.4 K/mm3 (1.8-7.8); Neutrophils % 59.6 % (37.0-80.0); Platelet Count 260 K/mm3 (142-424); Red Cell Distribution Width 13.2 % (11.5-17.5); White Blood Count 7.4 K/mm3 (4.8-10.8)
[2020-09-26 08:00] VITALS: BP 106/49; PULSE 90; PULSE 91; RESP 17; TEMP 36.7; O2SAT 96
--- NOTE | 2020-09-26 08:50 | HMH.ACPN2 ---
Internal Medicine - PN: Subj *Date: 09/26/20 *Time: 08:50 Interval history: Patient had pacemaker placed yesterday afternoon, feels well this morning, wants to go home. Exam Vital signs and Labs for Last 24 Hours: Temp Pulse Resp BP Pulse Ox 98.1 F 91 H 17 106/49 L 96 09/26/20 08:00 09/26/20 08:00 09/26/20 08:00 09/26/20 08:00 09/26/20 08:00 Laboratory Results - last 24 hr 09/26/20 06:12: WBC 7.4, RBC 4.30, Hgb 12.6, Hct 37.4, MCV 87.0, MCH 29.4, MCHC 33.8, RDW 13.2, Plt Count 260, MPV 8.3, Neut % (Auto) 59.6, Lymph % (Auto) 26.3, [place] % (Auto) 11.1 H, Eos % (Auto) 2.7, Baso % (Auto) 0.3, Neut # (Auto) 4.4, Lymph # (Auto) 1.9, [place] # (Auto) 0.8, Eos # (Auto) 0.2, Baso # (Auto) 0.0 Vital Signs - 24 hr 09/25/20 12:00 09/25/20 15:09 09/25/20 16:00 Temperature 97.9 F Pulse Rate 70 83 70 Pulse Rate [Apical] 83 Pulse Rate [Right] 71 Respiratory Rate 18 14 Blood Pressure [Right Arm] 107/62 L 153/63 H 02 Sat by Pulse Oximetry 96 98 09/25/20 16:15 09/25/20 16:30 09/25/20 16:45 Temperature 97.9 F 97.6 F 97.6 F Pulse Rate Pulse Rate [Apical] Pulse Rate [Right] 71 70 71 Respiratory Rate 14 16 16 Blood Pressure [Right Arm] 137/69 127/70 138/76 02 Sat by Pulse Oximetry 94 L 97 96 09/25/20 17:00 09/25/20 17:30 09/25/20 18:00 Temperature 97.9 F 97.8 F 97.6 F Pulse Rate Pulse Rate [Apical] Pulse Rate [Right] 74 73 78 Respiratory Rate 16 14 14 Blood Pressure [Right Arm] 137/71 100/52 L 112/60 02 Sat by Pulse Oximetry 96 97 96 09/25/20 19:00 09/25/20 19:16 09/25/20 20:00 Temperature 97.9 F 97.8 F 97.8 F Pulse Rate 80 Pulse Rate [Apical] Pulse Rate [Right] 72 83 70 Respiratory Rate 14 16 16 Blood Pressure [Right Arm] 118/63 144/65 H 124/60 02 Sat by Pulse Oximetry 96 96 96 09/26/20 00:00 09/26/20 04:00 09/26/20 08:00 Temperature 98.4 F 98.2 F 98.1 F Pulse Rate 90 90 90 Pulse Rate [Apical] 91 H Pulse Rate [Right] 89 96 H Respiratory Rate 16 16 17 Blood Pressure [Right Arm] 123/69 117/64 106/49 L 02 Sat by Pulse Oximetry 97 94 L 96 I & O for Last 24 hours: Intake & Output 09/23/20 09/24/20 09/25/20 09/26/20 23:59 23:59 23:59 23:59 Intake Total 480 / 480 360 / 360 240 / 240 Output Total 1300 / 1300 600 / 600 Balance -820 / -820 -240 / -240 240 / 240 Weight 180 lb 190 lb 190 lb 0.016 oz - Constitutional no acute distress - *Routine HEENT Exam Head: Present: normocephalic Eye: Present: EOMI ENT: Present: mucous membranes moist - *Routine Neck Exam Present: supple. Absent: lymphadenopathy - *Routine Respiratory Exam Present: CTA bilaterally - *Routine Cardiovascular Exam Present: irregularly irregular - *Routine Abdominal Exam Present: soft, normoactive bowel sounds. Absent: tenderness - *Routine Extremities Exam Absent: cyanosis, clubbing, edema - *Routine Skin Exam Present: warm. Absent: rash - *Routine Neurological Exam Present: alert, oriented X3 Assessment and Plan (1) Chest pain Status: Acute Category: Medical Code(s): R07.9 - Chest pain, unspecified (2) Diastolic dysfunction Status: Acute Category: Medical Code(s): I51.89 - Other ill-defined heart diseases (3) HTN (hypertension) Status: Chronic Category: Medical Code(s): I10 - Essential (primary) hypertension (4) Hyperlipemia Status: Chronic Category: Medical Code(s): E78.5 - Hyperlipidemia, unspecified (5) Obesity Status: Chronic Category: Medical Code(s): E66.9 - Obesity, unspecified (6) Family history of coronary artery disease Status: Chronic Category: Medical Code(s): Z82.49 - Family history of ischemic heart disease and other diseases of the circulatory system (7) Hypotension Status: Acute Category: Medical Code(s): I95.9 - Hypotension, unspecified (8) Atrial fibrillation Status: Acute Category: Medical Code(s): I48.91 - Unspecified atrial fibrillation (9) S/P placement of cardiac pace
--- NOTE | 2020-09-26 11:26 | PC.NURSE ---
HOME MEDS RETURNED TO PATIENT ON DC
--- NOTE | 2020-10-02 11:53 | HMH.DCSUM ---
General - General Admission date:: 09/24/20 Discharge date: 09/26/20 HPI HPI: This is a 79-year-old white female who presented to the emergency department with complaints of chest pain. The patient states that the chest pain woke her up around 230 this morning. She describes it as a sharp, pressure sensation in the substernal aspect of her chest. She states that the pain was constant when it woke her up. She states that this was a moderate pain. The patient states that the pain did not radiate. It was associated with shortness of breath and diaphoresis. She states that the chest pain lasted several hours and did not resolve. She has a history of hypertension and hyperlipidemia. She also has a family history of ischemic heart disease. (above as per Bella Lopez) The patient's blood work was essentially unremarkable. Her troponin I was normal. Her C-reactive protein was mildly elevated at 9.6. She was taken directly to the Ad Operations Intern due to her symptoms. They found mild nonflow limiting coronary artery disease with a hyperdynamic ventricle consistent with diastolic dysfunction accompanied by a moderate to severely elevated LVEDP. Cardiology recommended treatment of diastolic dysfunction with diuretics and negative chronotropic drugs. The patient was admitted and was given a dose of IV Lasix and started on diltiazem. Hospital Course Hospital Course: The patient's cardiac cath showed mild nonflow limiting coronary artery disease but a hyperdynamic ventricle consistent with diastolic dysfunction with moderate to severely elevated LVEDP. Cardiology wanted to treat the diastolic dysfunction with diuretics and negative chronotropic agents drugs. They started her on IV Lasix as well as diltiazem. The patient went into A. fib overnight and had episodes of low blood pressure as well as low heart rate. She became short of breath and very dizzy. Her medications were held and cardiology saw the patient again. They recommended pacemaker placement due to her tachybradycardia syndrome. The patient converted to sinus rhythm with a heart rate in the 60s. She had her pacemaker placed on 09/25/2020. By 09/26/2020, she felt well and wanted to go home. She was stable to be discharged and will follow up with cardiology in a week. Objective Vital signs: Temp Pulse Resp BP Pulse Ox 98.1 F 91 H 17 106/49 L 96 09/26/20 08:00 09/26/20 08:00 09/26/20 08:00 09/26/20 08:00 09/26/20 08:00 Narrative: - Constitutional no acute distress - *Routine HEENT Exam Head: Present: normocephalic Eye: Present: EOMI, PERRL ENT: Present: mucous membranes moist - *Routine Neck Exam Present: supple. Absent: lymphadenopathy - *Routine Respiratory Exam Present: CTA bilaterally - *Routine Cardiovascular Exam Present: RRR - *Routine Abdominal Exam Present: soft, normoactive bowel sounds. Absent: tenderness - *Routine Extremities Exam Absent: cyanosis, clubbing, edema - *Routine Skin Exam Present: warm. Absent: rash - *Routine Neurological Exam Present: alert, oriented X3 DS: Diagnosis - Discharge Diagnosis (1) Chest pain Status: Acute (2) Diastolic dysfunction Status: Acute (3) HTN (hypertension) Status: Chronic (4) Hyperlipemia Status: Chronic (5) Obesity Status: Chronic (6) Family history of coronary artery disease Status: Chronic (7) Hypotension Status: Acute (8) Atrial fibrillation Status: Acute (9) S/P placement of cardiac pacemaker Status: Acute (10) Bradycardia Status: Acute Discharge Plan - Patient Discharge Instructions ACTIVITY: Continue current activity DIET: continue same diet Patient Instructions: DI for Cardiac Catheterization, DI for Pacemaker Insertion, DI for Surgical Site Infection - Follow up Plan Follow up with: Costa Stout MD [Primary Care Provider] - 2 weeks Lewis Dallas MD [Staff Physicia
== END 2020-09-26 10:33 | disposition home or self-care (01) ==
LOC: ER 07:41 → 2ND 09:08
PROVIDERS: Internal Medicine; Admitting Provider Family Medicine; Emergency Provider Emergency Medicine; PCP Family Medicine; Visit Provider Family Medicine
DX: I25.110 Atherosclerotic heart disease of native coronary artery with unstable angina pectoris (principal); I49.5 Sick sinus syndrome; I48.91 Unspecified atrial fibrillation; I50.31 Acute diastolic (congestive) heart failure; I11.0 Hypertensive heart disease with heart failure; Z82.49 Family history of ischemic heart disease and other diseases of the circulatory system; J44.9 Chronic obstructive pulmonary disease, unspecified; E78.5 Hyperlipidemia, unspecified; Z79.899 Other long term (current) drug therapy
CPT/HCPCS: 33208; 36415; 71045; 71046; 80048; 80053; 80061; 83735; 84145; 84484; 85025; 85651; 86140; 87581; 87633; 87798; 93005; 93306; 93458; 96365; 96375; 99152; 99284; C1725; C1769; C1785; C1898; G0378; J1644; J2405; Q9967

== ENCOUNTER → 2020-10-08 11:06 | Outpatient (CLI) | payer MEDICARE, MEDICAID, SELFPAY ==
[2020-10-08 11:39] LABS: Basophils # 0.1 K/mm3 (0-0.2); Basophils % 0.9 % (0.1-2.0); Eosinophils # 0.2 K/mm3 (0.0-0.4); Eosinophils % 4.4 % (0.1-12.0); Hematocrit 39.1 % (37.0-47.0); Hemoglobin 12.6 g/dL (12.2-16.2); Lymphocytes # 1.8 K/mm3 (0.7-4.5); Lymphocytes % 31.7 % (10-50); Mean Corpuscular HGB Conc 32.2 g/dL (31.8-35.4); Mean Corpuscular Hemoglobin 28.6 pg (27.0-31.2); Mean Corpuscular Volume 88.9 fl (81-99); Mean Platelet Volume 7.4 fl (7.4-10.4); Monocytes # 0.5 K/mm3 (0.1-1.0); Monocytes % 9.5 % (1.7-9.3); Neutrophils % 53.5 % (37.0-80.0); Platelet Count 255 K/mm3 (142-424); Red Blood Count 4.39 M/mm3 (4.20-5.40); Red Cell Distribution Width 13.2 % (11.5-17.5); White Blood Count 5.6 K/mm3 (4.8-10.8)
== END ==
PROVIDERS: Visit Provider Nurse Practitioner Family
DX: J44.1 Chronic obstructive pulmonary disease with (acute) exacerbation (principal)
CPT/HCPCS: 36415; 85025

== ENCOUNTER 2021-05-23 12:12 | Emergency (ER) | payer MEDICARE, MEDICAID, SELFPAY ==
[2021-05-23] VITALS (7 sets, daily range): BP systolic 132–166; BP diastolic 51–125; PULSE 58–64; RESP 18–20; TEMP 36.8; O2SAT 97–98; BMI 31.6
--- NOTE | 2021-05-23 12:27 | ECG_ITS ---
APPROVED REPORT Exam: Resting ECG HR:60 bpm ECG Measurements Heart Rate 60 AXES QRSd 120 QRS -27 QT 458 T 20 QTc 458 Conclusion Electronic atrial pacemaker Left ventricular hypertrophy with QRS widening Abnormal ECG Electronically signed by : Alphonse Chang MD 05/25/2021 12:21:04
--- NOTE | 2021-05-23 12:33 | HMH.EDGENADL ---
ED Disposition Clinical Impression: Facial paresthesia UTI (urinary tract infection) Qualifiers: Urinary tract infection type: acute cystitis Hematuria presence: without hematuria Qualified Code(s): N30.00 - Acute cystitis without hematuria Disposition: Home, Self-Care Condition on Discharge: Good Instructions: DI for Urinary Tract Infection (UTI) Additional Instructions: Return to the emergency room if facial numbness returns or any other new symptoms such as numbness or weakness of arm or leg, worsening dizziness, severe headache, or difficulty with vision or speaking. Call your primary care doctor tomorrow to arrange follow-up appointment. Additional instructions for URINARY TRACT INFECTION: Take antibiotic as prescribed. See your physician in 2-3 days for follow up and culture results. Return immediately if you have an uncontrollable fever greater than 102 degrees, severe back or abdominal pain, inability to urinate, or repetitive vomiting. Prescriptions: Cefdinir [Omnicef 300mg Capsule] 300 mg PO BID #14 cap Transmission Status: Pending to [id number] Referrals: Costa Stout MD [Primary Care Provider] - - Critical Care Critical Care Time: No Attestation: On , the high probability of a clinically significant, sudden or life threatening deterioration of the following system(s) required my full and direct attention, intervention and personal management. The time I documented below is in addition to time spent performing reported procedures but includes the following listed in this critical care notation. Medical Decision Making - El Inquiry Pt receiving controlled substance: No Vital Signs: 05/23/21 12:23 05/23/21 12:44 05/23/21 13:01 Temperature 98.2 F Temperature Source Oral Pulse Rate 62 60 Pulse Rate [Left Radial] 60 Respiratory Rate 18 18 Blood Pressure 152/74 H 166/66 H Blood Pressure [Right Arm] 152/74 H Blood Pressure Mean 83 90 Blood Pressure Mean [Right Arm] 100 Blood Pressure Position [Right Arm] Sitting 02 Sat by Pulse Oximetry 98 98 98 Oxygen Delivery Method Room Air 05/23/21 14:31 05/23/21 15:01 05/23/21 15:31 Temperature Temperature Source Pulse Rate 60 58 L 60 Pulse Rate [Left Radial] Respiratory Rate 18 20 18 Blood Pressure 150/51 H 135/81 144/125 H Blood Pressure [Right Arm] Blood Pressure Mean 84 99 130 Blood Pressure Mean [Right Arm] Blood Pressure Position [Right Arm] 02 Sat by Pulse Oximetry 98 97 98 Oxygen Delivery Method - Lab Data Lab Results 05/23/21 12:33: WBC 5.0, RBC 4.46, Hgb 13.4, Hct 40.5, MCV 90.9, MCH 30.0, MCHC 33.0, RDW 13.5, Plt Count 256, MPV 8.4, Neut % (Auto) 54.6, Lymph % (Auto) 30.7, Centre % (Auto) 7.3, Eos % (Auto) 5.0, Baso % (Auto) 2.4 H, Neut # (Auto) 2.7, Lymph # (Auto) 1.5, Centre # (Auto) 0.4, Eos # (Auto) 0.3, Baso # (Auto) 0.1 05/23/21 12:33: Sodium 137, Potassium 4.0, Chloride 102, Carbon Dioxide 29, Anion Gap 10.0, BUN 16, Creatinine 0.90, Estimated Creat Clear 65, Estimated GFR 61, Est GFR ( Amer) 73, Glucose 94, Calcium 9.2, Troponin I < 0.01 05/23/21 12:37: SARS-CoV-2 (PCR) Not detected, Influenza A Untype (PCR) Not detected, Influenza Type B (PCR) Not detected 05/23/21 12:55: Urine Color Yellow, Urine Appearance Clear, Urine pH 6.0, Ur Specific Addison 1.010, Urine Protein Negative, Urine Glucose (UA) Negative, Urine Ketones Negative, Urine Blood Negative, Urine Nitrate Negative, Urine Bilirubin Negative, Urine Urobilinogen 0.2, Ur Leukocyte Esterase 3+ A, Urine RBC Occasional, Urine WBC 20-50, Ur Squamous Epith Cells 3-5, Urine Bacteria 1+ Result diagrams: 05/23/21 12:33 05/23/21 12:33 Orders (Tests/Meds): ED MEDICATIONS Generic Name Dose Route Start Last Admin Trade Name Freq PRN Reason Stop Dose Admin Ceftriaxone Sodium 1 gm/ 50 mls @ 100 mls/hr 05/23/21 13:15 05/23/21 13:20 Sodium Chloride IV 06/06/21 13:14 100 mls/hr Q24H DANISH Administration
--- NOTE | 2021-05-23 12:40 | XR_ITS ---
PROCEDURE INFORMATION: Exam: XR Chest Exam date and time: 05/23/2021 12:40 PM Age: 80 years old Clinical indication: Cough and shortness of breath; Prior surgery; Surgery date: 6+ months; Patient HX: Cough, congestion, and shortness of breath for a couple days. Non-smoker. Pacemaker in place. ; Additional info: Cough/congestion/sob TECHNIQUE: Imaging protocol: XR of the chest. Views: 2 views. COMPARISON: CR XR CHEST PORTABLE 09/25/2020 3:08 PM FINDINGS: Tubes, catheters and devices: Left subclavian transvenous pacemaker leads in place. Lungs: Minimal bibasilar atelectasis. Pleural spaces: Unremarkable. No pleural effusion. No pneumothorax. Heart/Mediastinum: Normal. Vasculature: Atherosclerotic disease of the thoracic aorta. Bones/joints: Multilevel thoracic spine degenerative disc space narrowing and osteophyte formation. IMPRESSION: No acute cardiopulmonary abnormality.
[2021-05-23 12:44] LABS: Basophils # 0.1 K/mm3 (0-0.2); Basophils % 2.4 % (0.1-2.0); Eosinophils # 0.3 K/mm3 (0.0-0.4); Hematocrit 40.5 % (37.0-47.0); Hemoglobin 13.4 g/dL (12.2-16.2); Lymphocytes # 1.5 K/mm3 (0.7-4.5); Lymphocytes % 30.7 % (10-50); Mean Corpuscular Volume 90.9 fl (81-99); Mean Platelet Volume 8.4 fl (7.4-10.4); Monocytes # 0.4 K/mm3 (0.1-1.0); Monocytes % 7.3 % (1.7-9.3); Neutrophils # 2.7 K/mm3 (1.8-7.8); Neutrophils % 54.6 % (37.0-80.0); Platelet Count 256 K/mm3 (142-424); Red Blood Count 4.46 M/mm3 (4.20-5.40); Red Cell Distribution Width 13.5 % (11.5-17.5)
--- NOTE | 2021-05-23 12:46 | CT_ITS ---
PROCEDURE INFORMATION: Exam: CT Angiography Head With Contrast, Arteriography Exam date and time: 05/23/2021 12:46 PM Age: 80 years old Clinical indication: Dizziness and giddiness and headache; Prior surgery; Surgery date: 6+ months; Surgery type: Pacemaker; Patient HX: Headache, dizziness, lightheaded since yesterday. Cough, congestion, shortness of breath. ; Additional info: TIA TECHNIQUE: Imaging protocol: Computed tomography angiography of the head with contrast. Exam focused on the arteries. 3D rendering (Not supervised by radiologist): MIP and/or 3D reconstructed images were created by the technologist. Radiation optimization: All CT scans at this facility use at least one of these dose optimization techniques: automated exposure control; mA and/or kV adjustment per patient size (includes targeted exams where dose is matched to clinical indication); or iterative reconstruction. Contrast material: ISOVUE 370; Contrast volume: 70 ml; Contrast route: INTRAVENOUS (IV); COMPARISON: No relevant prior studies available. FINDINGS: ANTERIOR CIRCULATION: Right internal carotid artery: Unremarkable. Intracranial segment is patent with no significant stenosis. No aneurysm. Right middle cerebral artery: Unremarkable. No occlusion or significant stenosis. No aneurysm. Right anterior cerebral artery: Unremarkable. No occlusion or significant stenosis. No aneurysm. Left internal carotid artery: Unremarkable. Intracranial segment is patent with no significant stenosis. No aneurysm. Left middle cerebral artery: Unremarkable. No occlusion or significant stenosis. No aneurysm. Left anterior cerebral artery: Unremarkable. No occlusion or significant stenosis. No aneurysm. POSTERIOR CIRCULATION: Right vertebral artery: Unremarkable. No occlusion or significant stenosis. No aneurysm. Left vertebral artery: Unremarkable. No occlusion or significant stenosis. No aneurysm. Basilar artery: Unremarkable. No occlusion or significant stenosis. No aneurysm. 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 Left posterior cerebral artery: Unremarkable. No occlusion or significant stenosis. No aneurysm. Brain: No definite mass, mass effect, or midline shift. Cerebral ventricles: No ventriculomegaly. Bones/joints: Unremarkable. No acute fracture. Soft tissues: Unremarkable. IMPRESSION: No large vessel significant stenosis or occlusion.
--- NOTE | 2021-05-23 12:46 | CT_ITS ---
PROCEDURE INFORMATION: Exam: CT Angiography Neck With Contrast Exam date and time: 05/23/2021 12:46 PM Age: 80 years old Clinical indication: Dizziness and giddiness and headache and weakness; Prior surgery; Surgery date: 6+ months; Surgery type: Pacemaker; Patient HX: Headache, dizziness, lightheaded since yesterday. With cough, congestion and shortness of breath. ; Additional info: TIA TECHNIQUE: Imaging protocol: Computed tomography angiography of the neck with contrast. 3D rendering (Not supervised by radiologist): MIP and/or 3D reconstructed images were created by the technologist. Radiation optimization: All CT scans at this facility use at least one of these dose optimization techniques: automated exposure control; mA and/or kV adjustment per patient size (includes targeted exams where dose is matched to clinical indication); or iterative reconstruction. Contrast material: ISOVUE 370; Contrast volume: 70 ml; Contrast route: INTRAVENOUS (IV); COMPARISON: CT CHEST W CON 01/16/2020 2:10 PM FINDINGS: Right common carotid artery: No stenosis. No dissection or occlusion. Right internal carotid artery: No stenosis of the extracranial segment. No dissection or occlusion. Right external carotid artery: No occlusion or stenosis of the origin. Left common carotid artery: Calcified atherosclerotic plaque at the origin of the left common carotid artery, causing less than 30% luminal narrowing. Left internal carotid artery: No stenosis of the extracranial segment. No dissection or occlusion. Left external carotid artery: No occlusion or stenosis of the origin. Right vertebral artery: No stenosis. No dissection or occlusion. Left vertebral artery: No stenosis. No dissection or occlusion. Left subclavian artery: Mixed atherosclerotic plaque within the proximal left subclavian artery, causing approximately 30% luminal narrowing. Aorta: Conventional thoracic aortic arch branch anatomy. Soft tissues: Normal. No significant soft tissue swelling. Bones/joints: No acute fracture. Lungs: Calcified granuloma within the periphery of the visualized left upper lobe. IMPRESSION: No large vessel significant stenosis or occlusion. REFERENCES: NASCET CRITERIA. The degree of internal carotid artery stenosis is based on NASCET criteria. Normal is no stenosis. Mild is less than 50% stenosis. Moderate is 50-69% stenosis. Severe is 70% to 99% stenosis. Total occlusion is no detectable patent lumen.
[2021-05-23 12:58] LABS: Chloride 102 mmol/L (98-107); Sodium 137 mmol/L (136-145)
[2021-05-23 13:02] LABS: Blood Urea Nitrogen 16 mg/dl (7-17); Calcium 9.2 mg/dl (8.4-10.2); Carbon Dioxide 29 mmol/L (22.0-30.0); Creatinine Clearance Estimated 65 mL/min (50-200); Estimated Glomerular Filt Rate 61 ml/min (>60); GFR (African American) 73 ML/MIN (>60); Glucose 94 mg/dl (74-100)
[2021-05-23 13:02] LABS: Appearance,Urine CLEAR (Clear); Bilirubin,Urine Negative (Negative); Blood, Urine Negative (Negative); Color,Urine YELLOW (Yellow); Glucose,Urine (UA) Negative (Negative); Ketones,Urine Negative (Negative); Leukocyte Esterase,Urine 3+ (Negative); Microscopic, Urine URINE MICROSCOPIC (MICROSCOPIC); Nitrate,Urine Negative (Negative); Protein,Urine Negative (Negative); Urobilinogen,Urine 0.2 EU/dl (0.2)
[2021-05-23 13:03] LABS: Bacteria,Urine 1+ /lpf; RBC,Urine Occasional #/hpf (0-3); WBC,Urine 20-50 #/hpf (0-3)
[2021-05-23 13:15] LABS: Troponin I < 0.01 ng/ml (0.00-0.034)
[2021-05-23 13:31] LABS: Coronavirus 19, PCR Not Detected (NotDetected); Influenza A, PCR Not Detected (NotDetected); Influenza B, PCR Not Detected (NotDetected)
--- NOTE | 2021-05-23 14:00 | PC.NURSE ---
PT AMBULATED UP TO BATHROOM
--- NOTE | 2021-05-23 16:10 | CT_ITS ---
PROCEDURE INFORMATION: Exam: CT Head Without Contrast Exam date and time: 05/23/2021 4:10 PM Age: 80 years old Clinical indication: Weakness, facial; Additional info: Right face tingling TECHNIQUE: Imaging protocol: Computed tomography of the head without contrast. Radiation optimization: All CT scans at this facility use at least one of these dose optimization techniques: automated exposure control; mA and/or kV adjustment per patient size (includes targeted exams where dose is matched to clinical indication); or iterative reconstruction. COMPARISON: CT ANGIO HEAD 05/23/2021 1:31 PM FINDINGS: Brain: No intracranial bleed, suspicious mass, or mass effect. Ventricles appear unremarkable. There is low attenuation change in the white matter most consistent with chronic age related small vessel ischemic change. No acute territorial infarction is seen. These can be initially occult on head CT. Cerebral ventricles: See Brain finding. Paranasal sinuses: Visualized sinuses are unremarkable. No fluid levels. Mastoid air cells: Visualized mastoid air cells are well aerated. Bones/joints: Unremarkable. No acute fracture. Soft tissues: Unremarkable. IMPRESSION: 1. No intracranial bleed, suspicious mass, or mass effect. Ventricles appear unremarkable. 2. There is low attenuation change in the white matter most consistent with chronic age related small vessel ischemic change. No acute territorial infarction is seen. These can be initially occult on head CT. Moderate generalized volume loss.
[2021-05-23 17:13] LABS: Troponin I < 0.01 ng/ml (0.00-0.034)
== END 2021-05-23 17:09 | disposition home or self-care (01) ==
PROVIDERS: Emergency Provider Emergency Medicine; PCP Family Medicine
DX: N30.00 Acute cystitis without hematuria (principal); R20.0 Anesthesia of skin; J44.9 Chronic obstructive pulmonary disease, unspecified; E78.5 Hyperlipidemia, unspecified; Z20.822 Contact with and (suspected) exposure to COVID-19
CPT/HCPCS: 36415; 70450; 70496; 70498; 71046; 80048; 81001; 84484; 85025; 87086; 93005; 96365; 99284; C9803; Q9967; U0003; U0005

== ENCOUNTER → 2021-10-02 10:24 | Outpatient (CLI) | payer MEDICARE, MEDICAID, SELFPAY ==
[2021-10-02 10:56] LABS: Basophils % 0.6 % (0.1-2.0); Eosinophils # 0.3 K/mm3 (0.0-0.4); Eosinophils % 3.5 % (0.1-12.0); Hematocrit 39.2 % (37.0-47.0); Hemoglobin 12.9 g/dL (12.2-16.2); Lymphocytes # 1.4 K/mm3 (0.7-4.5); Lymphocytes % 19.7 % (10-50); Mean Corpuscular Hemoglobin 29.8 pg (27.0-31.2); Mean Corpuscular Volume 90.3 fl (81-99); Mean Platelet Volume 8.6 fl (7.4-10.4); Monocytes # 0.6 K/mm3 (0.1-1.0); Monocytes % 8.5 % (1.7-9.3); Neutrophils # 4.8 K/mm3 (1.8-7.8); Neutrophils % 67.6 % (37.0-80.0); Platelet Count 246 K/mm3 (142-424); Red Blood Count 4.34 M/mm3 (4.20-5.40); Red Cell Distribution Width 13.4 % (11.5-17.5); White Blood Count 7.1 K/mm3 (4.8-10.8)
[2021-10-02 11:12] LABS: Strep Scrn Group A (Rapid) Negative (Negative)
== END ==
PROVIDERS: PCP Family Medicine; Visit Provider Physician Assistant
DX: Z20.822 Contact with and (suspected) exposure to COVID-19 (principal); J02.9 Acute pharyngitis, unspecified
CPT/HCPCS: 36415; 85025; 87275; 87276; 87430; C9803; U0003; U0005

== ENCOUNTER → 2021-12-14 10:54 | Outpatient (CLI) | payer MEDICARE, MEDICAID, SELFPAY ==
--- NOTE | 2021-12-14 11:01 | XR_ITS ---
FINAL REPORT CLINICAL HISTORY: SOA, COUGH, TIGHTNESS X 1 WK. HX COPD COMPARISON: May 23, 2021 FINDINGS: Two views of the chest were obtained. A left subclavian pacemaker is present. There is cardiomegaly. The mediastinum is normal. There is mild left base atelectasis or scarring. There is no pneumothorax. The bony thorax is intact. IMPRESSION: Mild left base atelectasis or scarring. Reviewed, Interpreted and Dictated by Ludwig Mendoza III, MD Transcribed by Alla Maurice Authenticated and [facility]
== END ==
PROVIDERS: PCP Family Medicine; Visit Provider Family Medicine
DX: R05.9 Cough, unspecified (principal)
CPT/HCPCS: 71046

== ENCOUNTER → 2021-12-23 10:00 | Outpatient (CLI) | payer MEDICARE, MEDICAID, SELFPAY | PROVIDERS: PCP Family Medicine; Visit Provider Family Medicine | DX: J44.9 Chronic obstructive pulmonary disease, unspecified (principal); R05.9 Cough, unspecified | CPT/HCPCS: 94060; 94727; 94729 ==

== ENCOUNTER → 2022-01-04 13:54 | Outpatient (POV) | payer MEDICARE, MEDICAID, SELFPAY | PROVIDERS: Visit Provider Dermatology | DX: Z00.00 Encounter for general adult medical examination without abnormal findings (principal) ==

== ENCOUNTER 2022-02-24 09:42 | Emergency (ER) | payer MEDICARE, MEDICAID, SELFPAY ==
[2022-02-24 10:30] VITALS: BP 141/89; PULSE 85; RESP 18; TEMP 37.2; O2SAT 98; BMI 37.6
--- NOTE | 2022-02-24 10:58 | EXP.UTC ---
Discharge Plan Disposition Patient Disposition: Home, Self-Care Condition: Good Prescriptions Prescriptions: New cefdinir 300 mg capsule 300 mg PO BID 7 Days Qty: 14 0RF prednisone 10 mg tablet 10 mg PO BID 5 Days Qty: 10 0RF No Action cephalexin 500 mg capsule 500 mg PO QID 10 Days Qty: 40 0RF Rx Instructions: take one tablet Q6 hours for 10 days losartan 50 mg tablet See Rx Instructions .ROUTE .COMPLEX Qty: 90 1RF Dose Instruction: Take 1 tablet by mouth once daily Rx Instructions: Take 1 tablet by mouth once daily Eliquis 2.5 mg tablet See Rx Instructions .ROUTE .COMPLEX Qty: 180 1RF Dose Instruction: Take 1 tablet by mouth twice daily Rx Instructions: Take 1 tablet by mouth twice daily omeprazole 40 MG capsule,delayed release(DR/EC) 40 mg PO DAILY levothyroxine 50 MCG tablet 50 mcg PO DAILY propranolol 120 MG capsule,extended release 24 hr 240 mg PO DAILY umeclidinium-vilanterol 1 EACH blister with device 1 puff IH DAILY pravastatin 40 MG tablet 40 mg PO HS ferrous sulfate 325 MG tablet 325 mg PO BID fluticasone propionate 16 GM spray,suspension 1 spr NOSTRIL-B DAILY diltiazem HCl 120 MG capsule,extended release 24hr 120 mg PO DAILY Qty: 30 0RF furosemide 20 MG tablet 20 mg PO DAILY Qty: 30 0RF cefdinir 300 MG capsule 300 mg PO BID Qty: 14 0RF Referrals Referrals: Costa Stout MD [Primary Care Provider] - Enter time for follow up Clinical Impressions Clinical Impression: Sinusitis, Sore throat Instructions Patient Instructions: DI for Sinusitis, Sore Throat Discharge ED Provider: Marge Mosquera [facility] General Stated complaint: Chills, sore throat, cough, SOA, Fever Mode of Arrival: Ambulatory Source of Information: Patient Limitations: No Limitations Time Seen by Provider: 02/24/22 10:58 Description of Symptoms (Recalled from Triage Doc. by RN): PATIENT C/O HEAD AND CONGESTION, COUGH, BODY ACHES, FEVER, AND SCRATCHY THROAT SINCE YESTERDAY HEENT Symptoms (Recalled from RN notes): Yes Resp Symptoms (Recalled from RN notes): Yes Skin Symptoms (Recalled from RN notes): No MS Symptoms (Recalled from RN notes): No Functional Status (Recalled from RN notes): WNL History of Present Illness Provider Complaint: Patient states that she has sinus issues about this time every year and she has been fighting them State that yesterday she started having sore scratchy throat and it has continued to get worse along with drainage in the back of her throat States that she wanted to come in and get checked before it moved into her chest Related Data Home Medications Medication Instructions Recorded Confirmed ferrous sulfate 325 mg (65 mg 325 mg PO BID iron supplement 09/24/20 01/11/22 iron) tablet fluticasone propionate 50 1 spr NOSTRIL-B DAILY Allergy 09/24/20 01/11/22 mcg/actuation nasal symptoms spray,suspension levothyroxine 50 mcg tablet 50 mcg PO DAILY hypothyoidism 09/24/20 01/11/22 omeprazole 40 mg capsule,delayed 40 mg PO DAILY acid reflux 09/24/20 01/11/22 release pravastatin 40 mg tablet 40 mg PO HS Cholesterol 09/24/20 01/11/22 propranolol 120 mg capsule,24 240 mg PO DAILY High blood pressure 09/24/20 01/11/22 hr,extended release umeclidinium 62.5 mcg-vilanterol 1 puff inhalation DAILY COPD 09/24/20 01/11/22 25 mcg/actuation powdr for inhalation Previous Rx's Medication Instructions Recorded diltiazem HCl 120 mg 120 mg PO DAILY ##30 09/26/20 capsule,extended release 24 hr furosemide 20 mg tablet 20 mg PO DAILY #30 tabs 09/26/20 cephalexin 500 mg capsule 500 mg PO QID 10 days #40 caps 10/08/20 cefdinir 300 mg capsule 300 mg PO BID #14 caps 05/23/21 losartan 50 mg tablet See Rx Instructions .Route 09/27/21 .COMPLEX #90 tabs apixaban 2.5 mg tablet (Eliquis) See Rx Instructions .Route 11/15/21 .COMPLEX #180 tabs cefdinir 300 mg capsule 300
[2022-02-24 11:28] VITALS: BP 141/89; PULSE 85; RESP 18; TEMP 37.2; O2SAT 98
[2022-02-24 12:23] LABS: UTC Strep Screen (Rapid) Negative (Negative)
== END 2022-02-24 11:30 | disposition home or self-care (01) ==
PROVIDERS: Emergency Provider Nurse Practitioner; PCP Family Medicine
DX: J02.9 Acute pharyngitis, unspecified (principal); J32.9 Chronic sinusitis, unspecified
CPT/HCPCS: 87880; 99212; G0463

== ENCOUNTER → 2022-07-12 09:01 | Outpatient (CLI) | payer MEDICARE, MEDICAID, SELFPAY ==
--- NOTE | 2022-07-12 09:04 | MM_ITS ---
PROCEDURE INFORMATION: Exam: MG Bilateral Screening 3D Mammography Exam date and time: 07/12/2022 9:22 AM Age: 81 years old Clinical indication: Screening. No family history of breast cancer. TECHNIQUE: Imaging protocol: Bilateral Screening tomosynthesis and 2D mammography including computer-aided detection (CAD) when performed. COMPARISON: MG DMSB DIG MAMM-SCREEN LEANDRO 02/10/2016 10:38 AM FINDINGS: MAMMOGRAPHY: Breast composition: There are scattered areas of fibroglandular density. Mass: No suspicious mass. Architectural distortion: None. Calcifications: No suspicious calcifications. Asymmetric density: None. Skin thickening: None. Axillary adenopathy: None. Left axillary pacemaker battery pack, limits evaluation and accentuates the importance of clinical breast exam. Other: Right biopsy clip. IMPRESSION: No mammographic evidence of malignancy. Annual screening is recommended unless otherwise clinically indicated. ASSESSMENT: BI-RADS Category 2: Benign
--- NOTE | 2022-07-12 09:04 | XR_ITS ---
FINAL REPORT TECHNIQUE: Bone densitometry calculations of the lumbar spine and left hip were obtained. CLINICAL HISTORY: post menopausal FINDINGS: DEXA BONE DENSITY AXIAL SKELETON Using L1-4, the bone mineral density of the spine is 0.783 g/cm2, corresponding to T-score of -2.4. Using the left hip, the bone mineral density of the femoral neck is 0.540 g/cm2, corresponding to a T-score of -3.3. NOTE: T-score: Standard deviation compared with peak bone mass of young adult mean. *Following the recommendations of the International Society of Bone Densitometry, classification of hip BMD is based on the lower of two T-scores; total hip or femoral neck. IMPRESSION: Osteoporosis: Lowest T-score is at or below -2.5. This patient''s T-score meets the World Health Organization criteria for osteoporosis. FRAX not reported because: Some T-score for Spine Total or hip Total or femoral neck at or below-2.5. Reviewed, Interpreted and Dictated by Ludwig Mendoza III, MD Transcribed by Alla Maurice Authenticated and [facility]
== END ==
PROVIDERS: PCP Internal Medicine; Visit Provider Family Medicine
DX: Z12.31 Encounter for screening mammogram for malignant neoplasm of breast (principal); Z78.0 Asymptomatic menopausal state
CPT/HCPCS: 77063; 77067; 77080

== ENCOUNTER → 2023-01-26 09:55 | Outpatient (CLI) | payer MEDICARE, SELFPAY ==
--- NOTE | 2023-01-26 10:00 | CA_ITS ---
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 Kitchen: Brittany Foss CRT Ht: 5 ft 2 in Wt: 173lbs BSA: 1.80 BP: 147/70 mmHg Indications: Atrial Fibrillation, CAD, Hyperlipidemia, Hypertension/HDD 2D Dimensions LA Volume 64.00 mL LA Volume Index 35.56 mL/m2 (M/F) 16-34 M-Mode Dimensions RVDd 3.37 cm (0.9-2.6) LA Diam 4.65 cm (1.9-4.0) LVDd 4.26 cm (3.5-5.7) Ao Diam 3.74 cm (2.0-3.7) LVDs 3.37 cm (3.5-5.7) IVSd 1.78 cm (0.6-1.1) PWd 0.53 cm (0.6-1.1) EF (Teich) 42.90% FS 20.90% EDV (Teich) 81.30 mL ESV (Teich) 46.40 mL LV Diastology E Decel Time 253.00 (160-240 msec) E/A Ratio 0.7 MED E' 4.60 (< 7 cm/sec) MED A' 9.60 cm/s E'/MED E' Ratio 12.20 (>14) LAT E' 6.70 (<10 cm/sec) LAT A' 12.30 cm/s E/LAT E' Ratio 8.37 (>14) Aortic Valve AI PHT 495.00 ms AO Peak GR. 9.50 mmHg Mitral Valve MV E Max Richard. 56.00 (40-130 cm/s) MV A Velocity 75.00 (40-130 cm/s) E/A Ratio 0.75 MV Decel. Time 253.00 (160-240 ms) MV PHT 74.00 ms Pulmonary Valve PV Peak Velocity 167.00 (50-150 cm/s) Tricuspid Valve TR P. Velocity 308.00 cm/s RAP Estimate 10.00 mmHg RVSP 47.80 mmHg Left Ventricle The left ventricle is normal size. Left ventricular systolic function is low-normal There is proximal septal thickening present. There is borderline global hypokinesis There is grade II diastolic dysfunction present. LVEF is 50%. Right Ventricle Right ventricle is mildly to moderately dilated. A device lead is present in the right ventricle. The right ventricular systolic function is normal. Atria Left atrium is mildly dilated. Right atrium is mildly dilated. There is no Doppler evidence of interatrial shunt. Aortic Valve The aortic valve is mildly thickened. Aortic valve opens well. There is no aortic valvular stenosis. No aortic regurgitation is present. Mitral Valve The mitral valve is normal in structure. Trace mitral regurgitation. Tricuspid Valve The tricuspid valve leaflets are thin and pliable. Mild to moderate tricuspid regurgitation. RVSP=40-45 mmHg. Pulmonic Valve The pulmonary valve is normal in structure. Trace pulmonic regurgitation. Great Vessels The aortic root is normal in size. IVC is normal in size and collapses >50% with inspiration. Pericardium There is no pericardial effusion. Other Information Study Quality: Technically Difficult Conclusion Low-normal LV systolic function. Grade II diastolic dysfunction. Mild to moderate RV dilation with normal RV function. Mild to moderate TR. Elevated RVSP 40-45 mmHg. Electronically signed by : Nelly Ahumada, 01/26/2023 18:34:35
== END ==
PROVIDERS: PCP Internal Medicine; Visit Provider Internal Medicine
DX: E78.5 Hyperlipidemia, unspecified (principal); I10 Essential (primary) hypertension; I48.0 Paroxysmal atrial fibrillation; Z95.0 Presence of cardiac pacemaker
CPT/HCPCS: 93306

== ENCOUNTER 2023-08-22 17:58 | Emergency (ER) | payer MEDICARE, SELFPAY ==
--- NOTE | 2023-08-22 19:35 | EXP.UTC ---
Discharge Plan Disposition Patient Disposition: Home, Self-Care Condition: Good Prescriptions Prescriptions: New triamcinolone acetonide 0.1 % cream 1 applic topical BID PRN (Reason: itching) Qty: 30 0RF methylprednisolone 4 mg Tablets,Dose Pack 4 mg PO DIRECTED 6 Days Qty: 21 0RF Rx Instructions: Take 1 pack as directed for 6 days No Action Stiolto Respimat 2.5-2.5 mcg/actuation mist 2 puff inhalation DAILY Patient Comments: INHALE 2 PUFFS BY MOUTH EVERY 24 HOURS Eliquis 2.5 mg tablet See Rx Instructions .ROUTE .COMPLEX Qty: 180 1RF Dose Instruction: Take 1 tablet by mouth twice daily Rx Instructions: Take 1 tablet by mouth twice daily losartan 50 mg tablet See Rx Instructions .ROUTE .COMPLEX Qty: 90 3RF Dose Instruction: Take 1 tablet by mouth once daily Rx Instructions: Take 1 tablet by mouth once daily omeprazole 40 MG capsule,delayed release(DR/EC) 40 mg PO DAILY propranolol 120 MG capsule,extended release 24 hr 240 mg PO DAILY umeclidinium-vilanterol 1 EACH blister with device 1 puff IH DAILY pravastatin 40 MG tablet 40 mg PO HS ferrous sulfate 325 MG tablet 325 mg PO BID diltiazem HCl 120 MG capsule,extended release 24hr 120 mg PO DAILY Qty: 30 0RF furosemide 20 MG tablet 20 mg PO DAILY Qty: 30 0RF Referrals Follow up/Referrals: Costa Stout MD [Primary Care Provider] - See instructions Activity Restrictions/Add. Instructions Additional Instructions/Restrictions: Try to identify and avoid contact with the offending substance. Don't start the oral steroids until tomorrow. Don't put the topical steroids (triamcinolone) on your face or your groin. Follow up with your regular doctor. GO TO THE ER FOR ANY WORSENING SYMPTOMS OR CONCERNS Clinical Impressions Clinical Impression: Contact dermatitis Instructions Patient Instructions: Contact Dermatitis Discharge ED Provider: Darius Ogden [facility] General Stated complaint: rash on back Time Seen by Provider: 08/22/23 19:35 Related Data Home Medications Medication Instructions Recorded Confirmed ferrous sulfate 325 mg (65 mg 325 mg PO BID iron supplement 09/24/20 08/22/23 iron) tablet omeprazole 40 mg capsule,delayed 40 mg PO DAILY acid reflux 09/24/20 08/22/23 release pravastatin 40 mg tablet 40 mg PO HS Cholesterol 09/24/20 08/22/23 propranolol 120 mg capsule,24 240 mg PO DAILY High blood pressure 09/24/20 08/22/23 hr,extended release umeclidinium 62.5 mcg-vilanterol 1 puff inhalation DAILY COPD 09/24/20 08/22/23 25 mcg/actuation powdr for inhalation tiotropium 2.5 mcg-olodaterol 2.5 2 puff inhalation DAILY 01/12/23 08/22/23 mcg/actuation mist for inhalation (Stiolto Respimat) Previous Rx's Medication Instructions Recorded diltiazem HCl 120 mg 120 mg PO DAILY ##30 09/26/20 capsule,extended release 24 hr furosemide 20 mg tablet 20 mg PO DAILY #30 tabs 09/26/20 apixaban 2.5 mg tablet (Eliquis) See Rx Instructions .Route 11/15/21 .COMPLEX #180 tabs losartan 50 mg tablet See Rx Instructions .Route 09/16/22 .COMPLEX #90 tabs methylprednisolone 4 mg tablets in 4 mg PO DIRECTED 6 days #21 tabs 08/22/23 a dose pack triamcinolone acetonide 0.1 % 1 applic topical BID PRN itching 08/22/23 topical cream #30 grams Allergies Allergy/AdvReac Type Severity Reaction Status Date / Time No Known Allergies Allergy Verified 08/22/23 19:53 [facility] Disclaimer: The information contained in this section may have been updated after the patient was seen, as this information can be updated by other users. Medical History Cardiac pacemaker in situ COPD (chronic obstructive pulmonary disease) Daytime somnolence Dizziness HTN (hypertension) Hyperlipidemia Hypertension Social History Smoking Status: Never smoker alcohol intake: never substance use type: denies use current occupational status: retired Travel in the last 8 weeks: None household members: family housing: house ROS Obtained: Yes All systems reviewed & no additional complaints except as documented Constitutional Constitutional: Denies chills and Denies fever(s) Eyes Eyes: Denies eye discharge ENT Ears, Nose, Mouth, and Throat: Denies dizziness, Denies otalgia and Denies sore throat Cardiovascular Cardiovascular: Denies chest pain Respiratory Respiratory: Denies shortness of breath, Denies chest congestion, Denies cough, Denies stridor and Denies wheezing Gastrointestinal Gastrointestingal: Denies nausea or vomiting Musculoskeletal Musculoskeletal: Reports system reviewed and no additional complaints, except as documented and Denies arthralgias Integumentary/Breasts Skin/Breast: Reports as per HPI and Reports rash Neurologic Neurologic: Denies dizziness and Denies paresthesias Allergic/Immunologic Allergic/Immunologic: Denies wheezing Physical Exam General General appearance: alert and in no apparent distress Head Head exam: atraumatic, normocephalic and normal inspection Eye Eye exam: Present normal appearance, PERRL and EOMI ENT ENT exam: Present normal exam, normal oropharynx, mucous membranes moist, TM's normal bilaterally and normal external ear exam Neck Neck exam: Present normal inspection, full ROM and trachea midline; Absent meningismus or lymphadenopathy Chest Chest inspection: Present normal inspection and symmetric chest wall rise; Absent tenderness Respiratory Respiratory exam: Present normal lung sounds bilaterally; Absent respiratory distress Cardiovascular Cardiovascular exam: Present regular rate and normal rhythm; Absent JVD Abdominal Exam Abdominal exam: Present soft and normal bowel sounds; Absent distention, tenderness or guarding Extremities Exam Extremities exam: Present normal inspection, full ROM and normal capillary refill; Absent calf tenderness Back Exam Back exam: Present normal inspection; Absent tenderness Neurological Exam Neurological exam: Present alert and oriented X3 Psychiatric Psychiatric exam: Present normal affect and normal mood Skin Skin exam: Present rash (there is a patch of maculopapular lesions on her back that measures 6 cm diameter, there are multiple sparse maculopapular lesions on her lower back, buttocks and thighs. No vesicles noted. no induration noted, no open wounds or drainage noted. ) Lymphatic Lymphatic Findings: no adenopathy Medical Decision Making Medical Records Medical records reviewed: No I reviewed the patient's medical records. El Inquiry Pt receiving controlled substance: No Medical Decision Narrative: Her skin lesions do not follow a zoster-like pattern. They are widespread on her back, buttocks, and both thighs. No vesicles noted. So, this doesn't appear to be shingles.
[2023-08-22 19:40] VITALS: BP 146/68; PULSE 53; RESP 12; TEMP 36.5; O2SAT 97; BMI 28.8
[2023-08-22 20:14] VITALS: BP 146/68; PULSE 53; RESP 12; TEMP 36.5; O2SAT 97
== END 2023-08-22 20:14 | disposition home or self-care (01) ==
PROVIDERS: Emergency Provider Nurse Practitioner Family; PCP Family Medicine
DX: L25.9 Unspecified contact dermatitis, unspecified cause (principal); I10 Essential (primary) hypertension; E78.5 Hyperlipidemia, unspecified; J44.9 Chronic obstructive pulmonary disease, unspecified; Z95.0 Presence of cardiac pacemaker
CPT/HCPCS: 99212; 99214; G0463

== ENCOUNTER 2024-09-30 13:55 | Emergency (ER) | payer MEDICARE, MEDICAID, SELFPAY ==
[2024-09-30 14:25] VITALS: BP 150/69; PULSE 63; RESP 18; TEMP 37.8; O2SAT 100; BMI 26.3
[2024-09-30 14:36] LABS: Coronavirus 19, PCR Not Detected (NotDetected); Influenza B, PCR Not Detected (NotDetected)
--- NOTE | 2024-09-30 14:46 | ED_ITS ---
Discharge Plan Disposition Patient Disposition: Home, Self-Care Condition: Good Prescriptions Prescriptions: New oseltamivir [Tamiflu] 75 mg capsule 75 mg PO BID 5 Days Qty: 10 0RF No Action Stiolto Respimat 2.5-2.5 mcg/actuation mist 2 puff inhalation DAILY Patient Comments: INHALE 2 PUFFS BY MOUTH EVERY 24 HOURS Eliquis 2.5 mg tablet See Rx Instructions .ROUTE .COMPLEX Qty: 180 1RF Dose Instruction: Take 1 tablet by mouth twice daily Rx Instructions: Take 1 tablet by mouth twice daily losartan 50 mg tablet See Rx Instructions .ROUTE .COMPLEX Qty: 90 3RF Dose Instruction: Take 1 tablet by mouth once daily Rx Instructions: Take 1 tablet by mouth once daily omeprazole 40 MG capsule,delayed release(DR/EC) 40 mg PO DAILY propranolol 120 MG capsule,extended release 24 hr 240 mg PO DAILY umeclidinium-vilanterol 1 EACH blister with device 1 puff IH DAILY pravastatin 40 MG tablet 40 mg PO HS ferrous sulfate 325 MG tablet 325 mg PO BID diltiazem HCl 120 MG capsule,extended release 24hr 120 mg PO DAILY Qty: 30 0RF furosemide 20 MG tablet 20 mg PO DAILY Qty: 30 0RF triamcinolone acetonide 0.1 % cream 1 applic topical BID PRN (Reason: itching) Qty: 30 0RF Referrals Follow up/Referrals: Costa Stout MD [Primary Care Provider] - See instructions Activity Restrictions/Add. Instructions Additional Instructions/Restrictions: I recommend taking Tylenol alternating with Motrin for pain and fever. If you have continued new or worsening signs or symptoms follow-up with your PCP return to the ER as needed. Clinical Impressions Clinical Impression: Influenza A Instructions Patient Instructions: DI for Influenza -- Adult Print Language Print Language: Icelandic Discharge ED Provider: Vincenzo Lyn General Adult HPI <COSTA Burch - Last Filed: 09/30/24 18:58> General Chief complaint: Upper Respiratory Infection Stated complaint: [facility] Chills fever Time Seen by Provider: 09/30/24 14:34 Mode of Arrival: Ambulatory Source of Information: Patient Description of Symptoms (Recalled from ER Triage Doc. by RN): Pt presents for evaluation of flu sx since yesterday. Pt states she has had a headache, sore throat, bodyaches, and chills. Pt states she has had increased fatigue History of Present Illness HPI narrative: Patient presents for evaluation of cough weakness sore throat headache myalgias body aches and fever. Patient states her symptoms began Monday. She has not taken any [id number] medication. She has a cough that is nonproductive and headache that is not responsive to Tylenol she has taken none today. She denies shortness of breath chest pain hemoptysis hematochezia melena nausea vomiting diarrhea. She denies dysuria or hematuria. Related Data Home Medications ?Medication ?Instructions ?Recorded ?Confirmed ferrous sulfate 325 mg (65 mg 325 mg PO BID iron supplement 09/24/20 07/31/24 iron) tablet omeprazole 40 mg capsule,delayed 40 mg PO DAILY acid reflux 09/24/20 07/31/24 release pravastatin 40 mg tablet 40 mg PO HS Cholesterol 09/24/20 07/31/24 propranolol 120 mg capsule,24 240 mg PO DAILY High blood pressure 09/24/20 07/31/24 hr,extended release umeclidinium 62.5 mcg-vilanterol 1 puff inhalation DAILY COPD 09/24/20 07/31/24 25 mcg/actuation powdr for inhalation tiotropium 2.5 mcg-olodaterol 2.5 2 puff inhalation DAILY 01/12/23 07/31/24 mcg/actuation mist for inhalation (Stiolto Respimat) Previous Rx's ?Medication ?Instructions ?Recorded diltiazem HCl 120 mg 120 mg PO DAILY ##30 09/26/20 capsule,extended release 24 hr furosemide 20 mg tablet 20 mg PO DAILY #30 tabs 09/26/20 apixaban 2.5 mg tablet (Eliquis) See Rx Instructions .Route 11/15/21 .COMPLEX #180 tabs triamcinolone acetonide 0.1 % 1 applic topical BID PRN itching 08/22/23 topical cream #30 grams losartan 50 mg tablet See Rx Instructions .Route 11/28/23 .COMPLEX #90 tabs oseltamivir 75 mg capsule (Tamiflu) 75 mg PO BID 5 days #10 caps 09/30/24 Allergies Allergy/AdvReac Type Severity Reaction Status Date / Time No Known Allergies Allergy Verified 07/31/24 13:28 [facility] <COSTA Burch - Last Filed: 09/30/24 18:58> [facility] Disclaimer: The information contained in this section may have been updated after the patient was seen, as this information can be updated by other users. Medical History COPD (chronic obstructive pulmonary disease) Hyperlipidemia Hypertension Dizziness Daytime somnolence Cardiac pacemaker in situ HTN (hypertension) Social History (Updated 09/30/24 @ 14:41 by Evelyn Lua RN) Smoking Status: Never smoker alcohol intake: never substance use type: denies use current occupational status: retired Travel in the last 8 weeks: None household members: family housing: house Have you lived/traveled outside US in past 30 days?: No Contact w/someone who lives/traveled outside US past 30 days?: No Exposure to someone with infectious disease in past 14 days?: No Do you have a fever (greater than 100.4 F or 38 C)?: Yes Have you tested positive for COVID-19: No Exposed to someone with COVID-19 in past 14 days?: No Do you have a sore throat?: Yes Do you have a cough?: No Do you have any weakness?: No Do you have any diarrhea?: No Are you experiencing any unusual bleeding?: No Do you have any muscle aches/pain?: No Do you have any abdominal pain?: No Are you experiencing loss of taste or smell?: No Other Medical History Have you received the Flu Vaccine for this season: Yes Have you received the Pneumonia Vaccine: Yes <COSTA Burch - Last Filed: 09/30/24 18:58> ROS Obtained: Yes Systems reviewed as appropriate & no additional complaints except as documented Physical Exam <COSTA Burch - Last Filed: 09/30/24 18:58> General General appearance: alert and in no apparent distress Respiratory Respiratory exam: Present normal lung sounds bilaterally Cardiovascular Cardiovascular exam: Present regular rate Neurological Exam Neurological exam: Present alert and oriented X3 Medical Decision Making <COSTA Burch - Last Filed: 09/30/24 18:58> Medical Records Medical records reviewed: Yes I reviewed the patient's medical records. Screening: Per USPSTF and CDC recommendations, given the prevalence of disease in our region, it is our hospital?s policy to screen for HIV and viral Hepatitis for all patients aged 18 and over and those with ongoing risk factors. El Inquiry Pt receiving controlled substance: No Vital Signs: 09/30/24 14:25 09/30/24 15:30 09/30/24 16:00 Temperature 100.1 F H Temperature Source Oral Pulse Rate 62 66 Pulse Rate [Right] 63 Respiratory Rate 18 Blood Pressure 125/60 115/67 Blood Pressure [Right Arm] 150/69 H Blood Pressure Mean [Right Arm] 96 Blood Pressure Source [Right Arm] Automatic Cuff Blood Pressure Position [Right Arm] Sitting 02 Sat by Pulse Oximetry 100 98 96 Oxygen Delivery Method Room Air 09/30/24 16:22 Temperature 98.6 F Temperature Source Oral Pulse Rate 65 Pulse Rate [Right] Respiratory Rate 20 Blood Pressure 115/67 Blood Pressure [Right Arm] Blood Pressure Mean [Right Arm] Blood Pressure Source [Right Arm] Blood Pressure Position [Right Arm] 02 Sat by Pulse Oximetry Oxygen Delivery Method Room Air Lab Data Lab results reviewed: Yes I reviewed the patient's lab results. Lab Results 09/30/24 14:24: SARS-CoV-2 (PCR) Not detected, Influenza A Untype (PCR) Detected A, Influenza Type B (PCR) Not detected 09/30/24 14:57: WBC 5.8, RBC 4.34, Hgb 12.9, Hct 38.5, MCV 88.7, MCH 29.7, MCHC 33.5, RDW 12.8, Plt Count 219, MPV 9.6, Neut % (Auto) 65.5, Lymph % (Auto) 18.7, Cecil % (Auto) 12.8 H, Eos % (Auto) 2.1, Baso % (Auto) 0.9, Neut # (Auto) 3.8, Lymph # (Auto) 1.1, Cecil # (Auto) 0.7, Eos # (Auto) 0.1, Baso # (Auto) 0.1, S odium 131 L, Potassium 4.2, Chloride 98, Carbon Dioxide 27, Anion Gap 10.2, BUN 11, Creatinine 0.80, Estimated Creat Clear 51, Estimated GFR 69, Est GFR ( Amer) 83, Glucose 90, Calcium 8.9, Magnesium 1.8, Total Bilirubin 1.0, AST 28, ALT 18, Alkaline Phosphatase 133 H, Total Protein 6.9, Albumin 4.3, Globulin 2.6, Albumin/Globulin Ratio 1.7 09/30/24 14:57 09/30/24 14:57 Orders (Tests/Meds): ED MEDICATIONS Discontinued Medications Generic Name Dose Route Start Last Admin Trade Name Daniel PRN Reason Stop Dose Admin Acetaminophen 1,000 mg 09/30/24 14:50 09/30/24 15:05 Acetaminophen 500mg Tab PO 09/30/24 14:51 1,000 mg ONCE ONE Administration Ibuprofen 800 mg 09/30/24 14:50 09/30/24 15:04 Ibuprofen 400 Mg Tablet PO 09/30/24 14:51 800 mg ONCE ONE Administration ORDERS Category Date Time Status Chest XR 2 view (NOT portable) [XR chest 2V] Stat Exams 09/30/24 14:50 Completed CBC w/Auto Diff [Complete Blood Count Auto Diff] Stat Lab 09/30/24 14:57 Completed CMP [Comprehensive Metabolic Panel] Stat Lab 09/30/24 14:57 Completed Magnesium Stat Lab 09/30/24 14:57 Completed Rapid PCR Covid and Flu A/B Stat Lab 09/30/24 14:24 Completed Medical Decision Narrative: In summary patient is a 84-year-old female who presents to the emergency department for evaluation of cough congestion sore throat body aches and fever. Patient is hemodynamically stable with a blood pressure 150/69 pulse 63 normal sinus rhythm on the bedside monitor breathing 18 times a minute satting at 100% on room air upon arrival, and febrile to 100.1. Physical exam is remarkable for a hoarse voice but clear breath sounds no increased work of breathing adventitious sounds or accessory muscle use, heart sounds are S1-S2 regular abdomen without murmurs gallops rubs or thrills, abdomen soft no rebound or guarding no rigidity with normal bowel sounds, posterior pharynx is erythematous however there is no exudate or postnasal drip noted. Pupils are equal round reactive to light.. Differential diagnosis includes upper or lower respiratory tract infection. Initial workup will be conducted with respiratory swabs hematologic labs plain film chest x-ray. Initial interventions include Tylenol and ibuprofen. Initial workup reviewed by me shows patient's hematologic labs are nonactionable my informed interpretation of her plain film chest x-ray shows no acute processes and her respiratory swabs are positive for influenza A.. Upon repeat evaluation patient's fever is defervesced to 98.6 and she is tolerating oral intake and feels subjectively better. Given this patient is appropriate for discharge with a prescription for Tamiflu and instructions for symptomatic and supportive care including Tylenol alternating with Motrin every 4 hours and close follow-up with her PCP for continued new or worsening signs or symptoms. <Vincenzo Lyn MD - Last Filed: 10/01/24 07:38> Vital Signs: 09/30/24 14:25 09/30/24 15:30 09/30/24 16:00 Temperature 100.1 F H Temperature Source Oral Pulse Rate 62 66 Pulse Rate [Right] 63 Respiratory Rate 18 Blood Pressure 125/60 115/67 Blood Pressure [Right Arm] 150/69 H Blood Pressure Mean [Right Arm] 96 Blood Pressure Source [Right Arm] Automatic Cuff Blood Pressure Position [Right Arm] Sitting 02 Sat by Pulse Oximetry 100 98 96 Oxygen Delivery Method Room Air 09/30/24 16:22 Temperature 98.6 F Temperature Source Oral Pulse Rate 65 Pulse Rate [Right] Respiratory Rate 20 Blood Pressure 115/67 Blood Pressure [Right Arm] Blood Pressure Mean [Right Arm] Blood Pressure Source [Right Arm] Blood Pressure Position [Right Arm] 02 Sat by Pulse Oximetry Oxygen Delivery Method Room Air Lab Data Lab Results 09/30/24 14:24: SARS-CoV-2 (PCR) Not detected, Influenza A Untype (PCR) Detected A, Influenza Type B (PCR) Not detected 09/30/24 14:57: WBC 5.8, RBC 4.34, Hgb 12.9, Hct 38.5, MCV 88.7, MCH 29.7, MCHC 33.5, RDW 12.8, Plt Count 219, MPV 9.6, Neut % (Auto) 65.5, Lymph % (Auto) 18.7, Cecil % (Auto) 12.8 H, Eos % (Auto) 2.1, Baso % (Auto) 0.9, Neut # (Auto) 3.8, Lymph # (Auto) 1.1, Cecil # (Auto) 0.7, Eos # (Auto) 0.1, Baso # (Auto) 0.1, S odium 131 L, Potassium 4.2, Chloride 98, Carbon Dioxide 27, Anion Gap 10.2, BUN 11, Creatinine 0.80, Estimated Creat Clear 51, Estimated GFR 69, Est GFR ( Amer) 83, Glucose 90, Calcium 8.9, Magnesium 1.8, Total Bilirubin 1.0, AST 28, ALT 18, Alkaline Phosphatase 133 H, Total Protein 6.9, Albumin 4.3, Globulin 2.6, Albumin/Globulin Ratio 1.7 Orders (Tests/Meds): ED MEDICATIONS Discontinued Medications Generic Name Dose Route Start Last Admin Trade Name Daniel PRN Reason Stop Dose Admin Acetaminophen 1,000 mg 09/30/24 14:50 09/30/24 15:05 Acetaminophen 500mg Tab PO 09/30/24 14:51 1,000 mg ONCE ONE Administration Ibuprofen 800 mg 09/30/24 14:50 09/30/24 15:04 Ibuprofen 400 Mg Tablet PO 09/30/24 14:51 800 mg ONCE ONE Administration ORDERS Category Date Time Status Chest XR 2 view (NOT portable) [XR chest 2V] Stat Exams 09/30/24 14:50 Completed CBC w/Auto Diff [Complete Blood Count Auto Diff] Stat Lab 09/30/24 14:57 Completed CMP [Comprehensive Metabolic Panel] Stat Lab 09/30/24 14:57 Completed Magnesium Stat Lab 09/30/24 14:57 Completed Rapid PCR Covid and Flu A/B Stat Lab 09/30/24 14:24 Completed Medical Decision Narrative: In summary patient is a 84-year-old female who presents to the emergency department for evaluation of cough congestion sore throat body aches and fever. Patient is hemodynamically stable with a blood pressure 150/69 pulse 63 normal sinus rhythm on the bedside monitor breathing 18 times a minute satting at 100% on room air upon arrival, and febrile to 100.1. Physical exam is remarkable for a hoarse voice but clear breath sounds no increased work of breathing adventitious sounds or accessory muscle use, heart sounds are S1-S2 regular abdomen without murmurs gallops rubs or thrills, abdomen soft no rebound or guarding no rigidity with normal bowel sounds, posterior pharynx is erythematous however there is no exudate or postnasal drip noted. Pupils are equal round reactive to light.. Differential diagnosis includes upper or lower respiratory tract infection. Initial workup will be conducted with respiratory swabs hematologic labs plain film chest x-ray. Initial interventions include Tylenol and ibuprofen. Initial workup reviewed by me shows patient's hematologic labs are nonactionable my informed interpretation of her plain film chest x-ray shows no acute processes and her respiratory swabs are positive for influenza A.. Upon repeat evaluation patient's fever is defervesced to 98.6 and she is tolerating oral intake and feels subjectively better. Given this patient is appropriate for discharge with a prescription for Tamiflu and instructions for symptomatic and supportive care including Tylenol alternating with Motrin every 4 hours and close follow-up with her PCP for continued new or worsening signs or symptoms. I was consulted by the VIOLETA, and we discussed the complexity of the problems being addressed. I approved the treatment and management plan for this patient's care in the Emergency Department, thus performing a substantive portion of the medical decision making. Vincenzo Lyn MD Critical Care <COSTA Burch - Last Filed: 09/30/24 18:58> Critical Care Time Critical Care Time: No
--- NOTE | 2024-09-30 14:50 | XR_ITS ---
FINAL REPORT CLINICAL HISTORY: Acute cough, congestion weakness COMPARISON: 12/14/2021 FINDINGS: There is no acute focal infiltrate. There is no evidence of effusion or other pleural disease. There is vascular congestion. The cardiac silhouette is unremarkable. A left-sided pacemaker is noted. There is a large hiatal hernia. IMPRESSION: No acute cardiopulmonary abnormality. Reviewed, Interpreted and Dictated by Miquel Chang MD Transcribed by Keiko Joseph Authenticated and [facility]
[2024-09-30] MEDS: IBUPROFEN 400 MG TABLET 800 MG PO (15:04)
[2024-09-30] MEDS: ACETAMINOPHEN 500MG TAB 1000 MG PO (15:05)
[2024-09-30 15:12] LABS: Albumin Level 4.3 g/dl (3.5-5.0); Basophils # 0.1 K/mm3 (0-0.2); Basophils % 0.9 % (0.1-2.0); Chloride 98 mmol/L (98-107); Eosinophils # 0.1 K/mm3 (0.0-0.4); Eosinophils % 2.1 % (0.1-12.0); Hematocrit 38.5 % (37.0-47.0); Hemoglobin 12.9 g/dL (12.2-16.2); Lymphocytes # 1.1 K/mm3 (0.7-4.5); Lymphocytes % 18.7 % (10-50); Mean Corpuscular HGB Conc 33.5 g/dL (31.8-35.4); Mean Corpuscular Hemoglobin 29.7 pg (27.0-31.2); Mean Corpuscular Volume 88.7 fl (81-99); Mean Platelet Volume 9.6 fl (7.4-10.4); Monocytes # 0.7 K/mm3 (0.1-1.0); Monocytes % 12.8 % (1.7-9.3); Neutrophils # 3.8 K/mm3 (1.8-7.8); Neutrophils % 65.5 % (37.0-80.0); Platelet Count 219 K/mm3 (142-424); Potassium 4.2 mmoL/L (3.5-5.1); Red Blood Count 4.34 M/mm3 (4.20-5.40); Red Cell Distribution Width 12.8 % (11.5-17.5); Sodium 131 mmol/L (136-145); White Blood Count 5.8 K/mm3 (4.8-10.8)
[2024-09-30 15:14] LABS: Blood Urea Nitrogen 11 mg/dl (7-17); Creatinine Clearance Estimated 51 mL/min (50-200); Estimated Glomerular Filt Rate 69 ml/min (>60); GFR (African American) 83 ML/MIN (>60)
[2024-09-30 15:15] LABS: Alanine Aminotransferase 18 U/L (12-78); Albumin/Globulin Ratio 1.7 (1.1-1.8); Alkaline Phosphatase 133 U/L (38-126); Anion Gap 10.2 mEq/L (5-15); Aspartate Amino Transferase 28 U/L (14-36); Calcium 8.9 mg/dl (8.4-10.2); Carbon Dioxide 27 mmol/L (22.0-30.0); Globulin 2.6 g/dL (1.3-3.2); Glucose 90 mg/dl (74-100); Magnesium 1.8 mg/dl (1.6-2.3); Total Protein,Serum 6.9 g/dl (6.3-8.2)
[2024-09-30 15:30] VITALS: BP 125/60; PULSE 62; O2SAT 98
[2024-09-30 15:40] LABS: Influenza A, PCR Detected (NotDetected)
[2024-09-30 16:00] VITALS: BP 115/67; PULSE 66; O2SAT 96
[2024-09-30 16:22] VITALS: BP 115/67; PULSE 65; RESP 20; TEMP 37; O2SAT 96
== END 2024-09-30 16:23 | disposition home or self-care (01) ==
PROVIDERS: Physician Assistant; Emergency Provider Emergency Medicine; PCP Family Medicine
DX: J10.1 Influenza due to other identified influenza virus with other respiratory manifestations (principal); R51.9 Headache, unspecified; M79.10 Myalgia, unspecified site; R50.9 Fever, unspecified; R53.83 Other fatigue; R05.9 Cough, unspecified; E78.5 Hyperlipidemia, unspecified; Z95.0 Presence of cardiac pacemaker; Z82.49 Family history of ischemic heart disease and other diseases of the circulatory system
CPT/HCPCS: 71046; 80053; 83735; 85025; 87636; 99283

== ENCOUNTER 2024-12-23 12:33 | Outpatient (CLI) | payer MEDICARE, MEDICAID, SELFPAY ==
--- OUTSIDE RECORDS SUMMARY | 2024-09-30 09:45 | XMS_ITS ---
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 Name Role Phone Costa Stout Primary Care Provider Lety Ohara Unavailable [phone] Allergies No Known Allergies REASON FOR VISIT Fever, Body Aches, Chills, Exposure to Flu Encounters Encounter Location Date Provider Diagnosis [place] [address] [facility] [address] [place] [id number] 09/30/2024 Lety Ohara Plan Of Treatment Next Appt Details Provider Name:Costa Orourke ry, 01/15/2025 02:00:00 PM, [address], [address], [place], [id number], Progress Notes * ARABELLAKRZYSZTOF CURTISDEYANIRAB:1940 ( 84 yo F)Acc No.[id number]:09/30/2024 Progress Notes Patient: TOBIN LONG Provider: MIGUEL ANGEL Wagoner :1940 A ge:84 Y S ex:Female Date:09/30/2024 Address:[address] [id number] Pcp:Costa Stout Subjective: * Chief Complaints: * 1 . Fever, Body Aches, Chills, Exposure to Flu. * HPI: E NT/respiratory: 84 year old female presents with c/o Fever. c/o body aches. * ROS: D ERMATOLOGY: no R jeffrey. n o H minerva. G ASTROENTEROLOGY: no N ausea. n o V omiting. U ROLOGY: no D ifficulty urinating. n o B lood in urine. * Medical History: B reast biospy non cancerous, Hypertension, Hyperlipidemia, Diverticulosis, anemia with heme + stool. EGD December 2012, gastric ulcers and H. pylori positive, Colon polyps, COPD, Dx: 2013, Arthritis, both knees, Hypothyroidism. * Surgical History: C olonoscopy 2011, LT Ear, Skin Lesion 12/2012, EGD 12/2012, RT Knee- [facility] 01/09/2017, Pacemaker Placement, [facility] 09/24/2020. * Hospitalization/Major Diagno stic Procedure: B lurred Vision- [facility] 08/2006, Anemia- [facility] 06/29-, RT Knee Surgery- [facility] 01/09-06/2017, Chest pain- [facility] 09/24-. * Family History: F ather: . M other: . 2 son(s) , 1 daughter(s) - healthy. . * Social History: C URRENT TOBACCO USE S moking Status: Patient does NOT smoke, Second hand smoke exposure: No. C affeine: no. Home smoke detector use: yes. Marital Status: Single. Past smoking status: no. * Allergies: N .K.D.A. Objective: * Vitals: Assessment: Plan: * Treatment: * Billing Information: * Visit Code: * Procedure Codes: * Electronic signature of Sonia Ohara APRN on 12/23/2024 at 12:37 PM EDT Sign off status: Pending * Provider: MIGUEL ANGEL Wagoner Date: 0 09/30/2024 Generated for Itzel grimm/Mauricio/Abhinavitting on: 0 12/23/2024 12:37 PM EDT History and Physical Notes * HPI (History of Present Illness) Category Sub-Category Detail Notes Category Not es ENT/respiratory Fever body aches
--- OUTSIDE RECORDS SUMMARY | 2024-12-06 05:30 | XMS_ITS ---
[facility] Address [address] [place] [id number] Care Team Providers Care Supervisor Beater Room Name Role Phone Costa Stout Primary Care Provider Allergies No Known Allergies Results Component Value Reference Range Notes CBC Fingerstick (in house) Reviewed date:12/06/2024 12:07:32 PM Interpretation: Performing Lab: Notes/Report: wbc 4.9 3.5 - 10 lym 23.4 15 - 50 mid 7.0 2 - 15 gran 69.6 35 - 80 rbc 4.44 3.5 - 5.5 hgb 13.0 11.5 - 16.5 hct 39.4 35 - 55 mcv 88.6 75 - 100 mch 29.4 25 - 35 mchc 33.1 31 - 38 plat 206 100 - 400 REASON FOR VISIT sore throat, cough Medications Medication SIG (Take, Route, Frequency, Duration) Notes Start Date End Date Status Pravastatin Sodium 40 MG 1 tablet Orally Once a day for 90 days Active Iron 325 (65 Fe) MG Take 1 tablet by leon th twice daily for 90 Active Propranolol HCl ER 120 MG 1 cap(s) orall y once a day for 90 days Active Furosemide 20 MG Take 1 tablet by leon th once daily for 90 Active Stiolto Respimat 2.5-2.5 MCG/ACT INHALE 2 PUFFS BY MOUTH EVERY 24 HOURS Active dilTIAZem HCl ER 120 MG 1 cap(s) orally once a day Active Losartan Potassium 50 MG 1 tab(s) orally once a day Active Betamethasone Dipropionate Aug 0.05 % 1 application Externally Two times a day 06/27/2024 Active Loratadine 10 MG 1 tablet Orally Once a day 06/27/2024 Active Omeprazole 40 MG 1 cap(s) orally once a day for 90 days Active Fluticasone Propionate 50 MCG/ACT 1 spray(s) intranasally once a day 01/28/2019 Active Benzonatate 200 MG 1 capsule as needed Orally Three times a day 12/06/2024 Active Vitamin D-3 125 MCG (5000 UT) 1 cap(s) orally once a week 06/15/2022 Active Ventolin HFA 108 (90 Base) MCG/ACT 2 puff(s) inhaled every 6 hours as needed Active Eliquis 2.5 MG 1 tab(s) orally 2 ti mes a day for 30 day(s) Active Promethazine-DM 6.25-15 MG/5ML 5 mL as needed Orally every 6 hrs 12/06/2024 Active Vital Signs Weight 154.4 lbs 12/06/2024 Blood pressure systolic 130 mm Hg 12/07/19 25 Blood pressure diastolic 78 mm Hg 025 Heart Rate 87 /min 12/06/2024 Height 65 in 12/06/2024 BMI 25.69 kg/m2 12/06/2024 Encounters Encounter Location Date Provider Diagnosis [facility] [address] [facility] [address] [place] [id number] 12/06/2024 Costa Stout Acute URI J06.9 and BMI 25.0-25.9,adult Z68.25 Assessments Encounter Date Diagnosis (ICD Code) Assessment Notes Treatment Notes Treatment Clinical Notes Section Notes 12/06/2024 Acute URI (ICD-10 - J06.9) 12/06/2024 BMI 25.0-25.9,adult (ICD-10 - Z68.25) Plan Of Treatment Medication Medication Name Sig Start Date Stop Date Notes Benzonatate 200 MG 1 capsule as needed Orally Three times a day 12/06/2024 Promethazine-DM 6.25-15 MG/5ML 5 mL as n eeded Orally every 6 hrs 12/06/2024 Next Appt Details Follow Up: prn, Reason: Provider Name:Costa Orourke ry, 01/15/2025 02:00:00 PM, [address], [address], [place], [phone], Progress Notes * KRZYSZTOF BELLADOB:1940 ( 84 yo F)Acc No.[id number]:12/06/2024 Progress Notes Patient: TOBIN LONG Provider: Kristen Stout M.D. :1940 A ge:84 Y S ex:Female Date:12/06/2024 Address:[place], [id number] Subjective: * Chief Complaints: * 1 . Sore throat, cough. * HPI: E NT/respiratory: 84 year old female presents with c/o sore throat. c/o cough P t sts she has been hoarse as well and sts all of her symptoms started yesterday morning. c/o Fever P t sts she has been running a fever as well and last took Tylenol last night.? c/o headache. * ROS: D ERMATOLOGY: no R jeffrey. [...] Skin Lesion 12/2012, EGD 12/2012, RT Knee- [facility] 01/09/2017, Pacemaker Placement, [facility] 09/24/2020. * Hospitalization/Major Diagno stic Procedure: B lurred Vision- [facility] 08/2006, Anemia- [facility] 06/29-, RT Knee Surgery- [facility] 01/09-06/2017, Chest pain- [facility] 09/24-. * Family History: F ather: . M other: . 2 son(s) , 1 daughter(s) - healthy. . * Social History: C URRENT TOBACCO USE S moking Status: Patient does NOT smoke, Second hand smoke exposure: No. C affeine: no. Home smoke detector use: yes. Marital Status: Single. Past smoking status: no. * Medications: T aking Eliquis 2.5 MG Tablet 1 tab(s) orally 2 times a day , Taking Ventolin HFA 108 (90 Base) MCG/ACT Aerosol Solution 2 puff(s) inhaled every 6 hours as needed , Taking Vitamin D-3 125 MCG (5000 UT) Tablet 1 cap(s) orally once a week , Taking Fluticasone Propionate 50 MCG/ACT Suspension 1 spray(s) intranasally once a day , Taking Omeprazole 40 MG Capsule Delayed Release 1 cap(s) orally once a day , Taking Loratadine 10 MG Tablet 1 tablet Orally Once a day , Taking Betamethasone Dipropionate Aug 0.05 % Cream 1 application Externally Two times a day , Taking Losartan Potassium 50 MG Tablet 1 tab(s) orally once a day , Taking dilTIAZem HCl ER 120 MG Capsule Extended Release 24 Hour 1 cap(s) orally once a day , Taking Stiolto Respimat 2.5-2.5 MCG/ACT Aerosol Solution INHALE 2 PUFFS BY MOUTH EVERY 24 HOURS , Taking Furosemide 20 MG Tablet Take 1 tablet by mouth once daily , Taking Propranolol HCl ER 120 MG Capsule Extended Release 24 Hour 1 cap(s) orally once a day , Taking Iron 325 (65 Fe) MG Tablet Take 1 tablet by mouth twice daily , Taking Pravastatin Sodium 40 MG Tablet 1 tablet Orally Once a day , Medication List reviewed and reconciled with the patient * Allergies: N .K.D.A. Objective: * Vitals: W t: 154.4, Temp: 98.5, BP: 130/78, HR: 87, O2 Sat: 95% on RA, Nurse: xavier, Ht: 65, BMI:25.69. * Examination: E NT/Respiratory: General Appearance: N AD, using a cane to assist with ambulation. Oral cavity : e rythema without exudate on pharynx. Heart : R RR, normal S1 S2. Lungs: c lear to auscultation bilaterally. Assessment: * Assessment: 1. A cute URI - J06.9 (Primary) 2 . B MS 25.0-25.9,adult - Z68.25 ? Plan: * Treatment: Value Reference Range w bc 4.9 3.5 - 10 * l ym 23.4 15 - 50 * m id 7.0 2 - 15 * g ran 69.6 35 - 80 * r bc 4.44 3.5 - 5.5 * h gb 13.0 11.5 - 16.5 * h ct 39.4 35 - 55 * m cv 88.6 75 - 100 * m ch 29.4 25 - 35 * m chc 33.1 31 - 38 * p lat 206 100 - 400 * Fadia Francis 12/06/2024 09:33 :11 AM EDT > Provider reviewed results while patient in office. * Procedure Codes: G 2211 Complex e/[place], [address] CAPILLARY BLOOD DRAW, 99210 CBC WITH AUTO DIFF, G8420 BMI<30 AND >=22 CALC & DOCU, 1036F TOBACCO NON-USER * Follow Up: p rn * Billing Information: * Visit Code: 96951 Office Visit, Est Pt., Level 3. * Procedure Codes: G2211 Complex e/[place]. [address] CAPILLARY BLOOD DRAW. 57792 CBC WITH AUTO DIFF. G8420 BMI<30 AND >=22 CALC & DOCU. 1036F TOBACCO NON-USER. * Electronic signature of Elda Stout MD on 12/23/2024 at 12:36 PM EDT Sign off status: Pending * Provider: Kristen Stout M.D. Date: 12/06/2024 Generated for Itzel grimm/Mauricio/eTmissysmitting on: 12/23/2024 12:36 PM EDT History and Physical Notes * HPI (History of Present Illness) Category Sub-Category Detail Notes Category Not es ENT/respiratory sore throat cough Pt sts she has been hoarse as well and sts all of her symptoms started yesterday morning Fever Pt sts she has been running a fever as well and last took Tylenol last night headache Examination Category Sub-Category Detail Notes Category Not es ENT/Respiratory Oral cavity : erythema without exudate on pharynx Heart : RRR, normal S1 S2 Lungs: clear to auscultatio n bilaterally General Appearance: NAD, using a cane to assist with ambulation
--- OUTSIDE RECORDS SUMMARY | 2024-12-07 09:36 | XMS_ITS ---
[facility] Organization [facility] Address [address] [facility] [address] [facility] [address] [place] [id number] Care Team Providers Care Sergeant At Arms Name Role Phone Costa Stout Primary Care Provider REASON FOR VISIT due for screening Encounters Encounter Location Date Provider Diagnosis [facility] [address] [place] [id number] 12/07/2024 Costa Stout Osteopenia M8 5.80 Assessments Encounter Date Diagnosis (ICD Code) Assessment Notes Treatment Notes Treatment Clinical Notes Section Notes 12/07/2024 Osteopenia (ICD-10 - M85.80) Plan Of Treatment Pending Test Test Name Order Date Bone density 12/07/2024 Next Appt Details Provider Name:Costa Orourke ry, 01/15/2025 02:00:00 PM, [address], [address], [place], [id number], Progress Notes * TABBY BELLB:1940 ( 84 yo F)Acc No.[id number]:12/07/2024 Patient: KRZYSZTOF LONGA :1940 A ge:84 Y S ex:Female Address:[address] [place] [address] Subjective: * Chief Complaints: * D ue for screening * Medical History: * Surgical History: * Hospitalization/Major Diagno stic Procedure: * Medications: Objective: * Vitals: * Physical Examination: Assessment: * Assessment: 1. O steopenia - M85.80 (Primary) Plan: * Treatment: * Procedure Codes: * true * Date: Generated for Itzel grimm/Mauricio/Maximino on: 0 12/23/2024 12:37 PM EDT
--- OUTSIDE RECORDS SUMMARY | 2024-12-23 12:37 | XMS_ITS | Patient Health Record ---
[facility] [address] [place] [id number] Care Team Providers Care Mimeograph Operator Name Role Phone Costa Stout Primary Care Provider Edna Mello Unavailable [phone] Mayda Lety Unavailable [phone] Allergies No Known Allergies Results Component Value [...] - 38 plat 206 100 - 400 CBC Fingerstick (in house) Reviewed date:04/23/2024 02:30:34 PM Interpretation: Performing Lab: Notes/Report: wbc 6.1 3.5 - 10 lym 39.5 15 - 50 mid 7.2 2 - 15 gran 53.3 35 - 80 rbc 4.16 3.5 - 5.5 hgb 12.3 11.5 - 16.5 hct 37.9 35 - 55 mcv 91.1 75 - 100 mch 29.5 25 - 35 mchc 32.4 31 - 38 plat 156 100 - 400 P-Basic Metabolic Panel (BMP ) Reviewed date:01/12/2024 11:58:29 AM Interpretation:Na 134, Cr 1.01, gfr 56 Performing Lab: Notes/Report: Test performed by [facility] [address] [place] [address] , [address], [place] [address] Cristofer Henao MD, [employer] CLIA: [id number] Sodium 134 135-145 mmol/L Potassium 4.3 3.5-5.3 mmol/L Chloride 99 97-108 mmol/L CO2 24 22-32 mmol/L Glucose 98 65-99 mg/dL BUN 16 8-23 mg/dL Creatinine 1.01 0.50-1.00 mg/dL Calcium 9.3 8.6-10.4 mg/dL eGFR by Creatinine 56 >59 mL/min/1.73m2 P-T4 Free (thyroxine) Reviewed date:01/12/2024 11:58:29 AM Interpretation:1.92 Performing Lab: Notes/Report: Test performed by [facility] [address] [place] [address] , [place] [address] Cristofer Henao MD, [employer] CLIA: [id number] Thyroxine Free (free T4) 1.92 0.86-1.76 ng/dL P-TSH Reviewed date:01/12/2024 11:58:29 AM Interpretation:Normal Performing Lab: Notes/Report: Test performed by [facility] [address] [place] [address] , [address], [place] [address] Cristofer Henao MD, [employer] Architect CLIA: [id number] TSH 2.53 0.43-5.25 mU/L Covid test (in house) Reviewed date:06/27/2024 11:38:05 AM Interpretation:neg Performing Lab: Notes/Report: neg Result: neg Influenza Screen (in house) Reviewed date:06/27/2024 11:37:20 AM Interpretation:neg Performing Lab: Notes/Report: neg results neg CBC Venipuncture (in house) Reviewed date:01/10/2024 04:16:30 PM Interpretation: Performing Lab: Notes/Report: wbc 6.3 3.5 - 10 lymph 31.7% 15 - 50 mid 7.2% 2 - 15 gran 61.1% 35 - 80 rbc 4.47 3.5 - 5.5 hgb 13.1 11.5 - 16.5 hct 38.9 35 - 55 mcv 87.0 75 - 100 mch 29.4 25 - 35 mchc 33.8 31 - 38 platlet 277 100 - 400 P-Comprehensive Metabolic Pa skye (CMP) Reviewed date:07/18/2024 10:49:50 AM Interpretation:alk phos 133 Performing Lab: Notes/Report: Test performed by [facility] [address] [place] [address] , [address], [place] [address] Cristofer Henao MD, [employer] Architect CLIA: [id number] Sodium 139 135-145 mmol/L Potassium 4.3 3.5-5.3 mmol/L Chloride 102 97-108 mmol/L CO2 27 22-32 mmol/L Glucose 92 65-99 mg/dL BUN 15 8-23 mg/dL Creatinine 0.90 0.50-1.00 mg/dL Calcium 9.0 8.6-10.4 mg/dL eGFR by Creatinine 64 >59 mL/min/1.73m2 Protein 6.2 6.0-8.3 g/dL Albumin 3.9 3.5-5.3 g/dL Alkaline Phosphatase 133 35-121 IU/L ALT (SGPT) 7 <5-47 IU/L AST (SGOT) 20 <5-40 IU/L Bilirubin, Total 0.6 <0.2-1.2 mg/dL A/G Ratio 1.7 1.1-2.5 P-Lipid Panel Reviewed date:07/18/2024 10:49:50 AM Interpretation: Normal Performing Lab: Notes/Report: Test performed by [facility] [address] [place] [address] [address], [place] [address] Cristofer Henao MD, [employer] Architect CLIA: [id number] Cholesterol 155 <200 mg/dL Triglycerides 103 <150 mg/dL HDL Cholesterol 59 >39 mg/dL Cholesterol / HDL Ratio 2.63 0.00-4.44 Ratio Non-HDL Cholesterol 96 <130 mg/dL LDL Cholesterol (Calculation) 75 <130 mg/dL LDL Cholesterol Levels* Less than 100 mg/dL Optimal 100 to 129 mg/dL Near Optimal/ Above Optimal 130 to 159 mg/dL Borderline High 160 to 189 mg/dL High 190 mg/dL and above Very High * Categories as recommended by the 2004 ATPIII guidelines LDL/HDL Ratio 1.3 <3.3 Ratio LDL Cholesterol Patient History Test Date: 07/13/2023 LDL Results: 79 Units: mg/dL % Change: - Test Date: 07/17/2024 LDL Results: 75 Units: mg/dL % Change: -5% P-Phosphorus Reviewed date:07/18/2024 10:49:50 AM Interpretation: Normal Performing Lab: Notes/Report: Test performed by [facility] [address] , [place] [address] Cristofer Henao MD, J2Ee Architect CLIA: [id number] Phosphorus 4.0 2.5-4.5 mg/dL P-TSH reflex to FT4 Reviewed date:07/18/2024 10:49:50 AM Interpretation: Normal Performing Lab: Notes/Report: Test performed by [facility] [address] , [place] [address] Cristofer Henao MD, J2[employer]e Architect CLIA: [id number] TSH reflex to FT4 4.39 0.43-5.25 mU/L P-Microalbumin/Creatinine, R andom Urine Sample Reviewed date:07/18/2024 10:49:50 AM Interpretation:a/c 54 Performing Lab: Notes/Report: Test performed by [facility] [address] [place] [address] , [address], [place] [address] Cristofer Henao MD, J2Ee Architect CLIA: [id number] Albumin/Creatinine Ratio, Urine 54 0-30 ug/m g Microalbumin, Urine, Random 0.9 Creatinine, Urine 16.8 P-Vitamin D 25-Hydroxy Reviewed date:07/18/2024 10:49:51 AM Interpretation:28.4 Performing Lab: Notes/Report: Test performed by [facility] [address] [place] [address] , [address], [place] [address] Cristofer Henao MD, J2[employer]e Architect CLIA: [id number] Vitamin D 25-Hydroxy 28.4 30.0-100.0 ng/mL Interpretation of Vitamin D 25 OH: < 20 ng/mL - Deficiency 20 - 29 ng/mL - Insufficiency 30 - 100 ng/mL - Sufficiency > 100 ng/mL - Super-therapeutic- toxicity may occur above this level. Clinical correlation required. TENS- wound panel Reviewed date:03/01/2024 12:22:37 PM Interpretation:Quantity Not Sufficient Performing Lab: Notes/Report: Quantity Not Sufficient Medications Medication SIG (Take, Route, Frequency, Duration) Notes Start Date End Date Status dilTIAZem HCl ER 120 MG 1 cap(s) [...] cap(s) orally once a week 06/15/2022 Active Pravastatin Sodium 40 MG 1 tablet Orally Once a day for 90 days Active Promethazine-DM 6.25-15 MG/5ML 5 mL as needed Orally every 6 hrs 12/06/2024 Active Ventolin HFA 108 (90 Base) MCG/ACT 2 puff(s) inhaled every 6 hours as needed Active Iron 325 (65 Fe) MG Take 1 tablet by leon th twice daily for 90 Active Eliquis 2.5 MG 1 tab(s) orally 2 ti mes a day for 30 day(s) Active Propranolol HCl ER 120 MG 1 cap(s) orall y once a day for 90 days Active Furosemide 20 MG Take 1 tablet by leon th once daily for 90 Active Stiolto Respimat 2.5-2.5 MCG/ACT INHALE 2 PUFFS BY MOUTH EVERY 24 HOURS Active Immunizations Vaccine Route Administration Date Status Comme nts eXkofwvy-qtprlxvrz-jjdepel e pts. IM Intramuscular 05/19/2011 Administered Prevnar (PCV20) IM Intramuscular 06/13/2022 Administered Prevnar (PCV13) IM Intramuscular 06/15/2015 Administered Fluzone High Dose (65yr and older) IM Intramuscular 03/12/2012 Administered Fluzone High Dose (65yr and older) IM Intramuscular 06/15/2015 Administered Fluzone High Dose (65yr and older) IM Intramuscular 04/13/2017 Administered Fluzone High Dose (65yr and older) IM Intramuscular 04/09/2019 Administered Fluzone High Dose (65yr and older) IM Intramuscular 03/24/2020 Administered Fluzone High Dose (65yr and older) Unknown 04/10/2021 Administered Fluzone High Dose (65yr and older) Unknown 05/04/2022 Administered COVID 19 Moderna Unknown 10/12/2020 Administered Problems Problem Type SNOMED Code ICD Code Onset Dates Problem Status W/U Status Risk Notes Problem Hypothyroidism (16931459) Hypothyroidism, unspecified (E03.9) Active confirmed Problem 46741999 Vitamin D deficiency (E55.9) Active confirmed Problem 48740452 Essential hypertension (I10) Active confirmed Problem 239651276 History of anemi a (Z86.2) Active confirmed Problem 476341494 History of gastr ic ulcer (Z87.19) Active confirmed Problem 208920207 COPD exacerbatio n (J44.1) Active confirmed Problem 204024619 Mixed hyperlipidemia (E78.2) Active confirmed Problem Seasonal allergic rhinitis (541355489) Seasonal allergic reaction (J30.2) Active confirmed Problem 10922373 Chronic obstruct eliane pulmonary disease, unspecified COPD type (J44.9) Active confirmed Problem 279203803 Gastroesophageal reflux disease, esophagitis presence not specified (K21.9) Active confirmed Problem Osteoporosis (54769122) Osteoporosis (M81.0) Active confirmed Problem 289528113 Primary osteoarthritis of both knees (M17.0) Active confirmed Problem 94331236 Iron deficiency anemia, unspecified iron deficiency anemia type (D50.9) Active confirmed Problem 127517267327529 Moderate persist ent asthma with acute exacerbation (J45.41) Active confirmed Problem 46674409 Right sided sciatica (M54.31) Active confirmed Problem 292036655 Osteoarthritis o f both knees, unspecified osteoarthritis type (M17.0) Active confirmed Problem Menopause (792090258) Post menopausal syndrome (N95.1) Active confirmed Problem 42537272 Rhinitis, unspecified chronicity, unspecified type (J31.0) Active confirmed Problem 828579735 CKD (chronic kid tony disease) stage 3, GFR 30-59 ml/min (N18.3) Active confirmed Problem 030422447 Abnormal CXR (R93.89) Active confirmed Problem 7784550 Diastolic dysfunction (I51.89) Active confirmed Problem 082625067 Stage 3 chronic kidney disease, unspecified whether stage 3a or 3b CKD (N18.30) Active confirmed Problem 056486982 Stage 3a chronic kidney disease (N18.31) Active confirmed Vital Signs Heart Rate 87 /min 12/06/2024 Blood pressure diastolic 78 mm Hg 12/06/2024 Height 65 in 12/06/2024 Blood pressure systolic 130 mm Hg 12/06/2024 Weight 154.4 lbs 12/06/2024 BMI 25.69 kg/m2 12/06/2024 Encounters Encounter Location Date Provider Diagnosis [facility] [address] [facility] [address] [place], [place] [id number] 01/10/2024 Costa Pittsfield Essential hypertensi on I10 ; Hypothyroidism, unspecified E03.9 ; Stage 3a chronic kidney disease N18.31 ; Rash R21 ; Dermatitis L30.9 and Seasonal allergic reaction J30.2 [facility] [address] [place], [place] [id number] 02/27/2024 Costa Pittsfield Cellulitis of left f oot L03.116 and Open wound of left foot, initial encounter S91.302A [facility] [address] [facility] [address] [place], [place] [id number] 03/25/2024 Lety Ohara Cellulitis L03.90 [facility] [address] [facility] [address] [place], [place] [id number] 04/23/2024 R Bandar Mello Pemphigoid, unspecif ied L12.9 and Rhinitis J31.0 [facility] [address] [facility] [address] [place], [place] [id number] 06/27/2024 R Bandar Mello Acute sinusitis J01. 90 and Dermatitis L30.9 [facility] [address] [facility] [address] [place], [place] [id number] 07/17/2024 Costa Pittsfield Essential hypertensi on I10 ; Mixed hyperlipidemia E78.2 ; Hypothyroidism, unspecified E03.9 ; Stage 3a chronic kidney disease N18.31 ; Vitamin D deficiency E55.9 and Chronic obstructive pulmonary disease, unspecified COPD type J44.9 [facility] [address] [facility] [address] [place], [place] [id number] 12/06/2024 Costa Pittsfield Acute URI J06.9 and BMI 25.0-25.9,adult Z68.25 [facility] [address] [facility] [address] [place], [place] [id number] 01/12/2024 Costa Pittsfield Hypothyroidism, unspecified E03.9 [facility] [address] [place], [place] [id number] 03/01/2024 Costa Pittsfield [facility] [address] [facility] [address] [place] [id number] 07/18/2024 Costa Pittsfield [facility] [address] [facility] [address] [place], [place] [id number] 12/07/2024 Costa Pittsfield Osteopenia M85.80 Assessments Encounter Date Diagnosis (ICD Code) Assessment Notes Treatment Notes Treatment Clinical Notes Section Notes 01/12/2024 Hypothyroidism, unspecified (ICD-10 - E03.9) 02/27/2024 Cellulitis of left foot (ICD-10 - L03.116) 02/27/2024 Open wound of left foot, initial encounter (ICD-10 - S91.302A) 03/25/2024 Cellulitis (ICD-10 - L03.90) warm soaks until well; she took previous RX once daily; reinforced to take this RX tid; stressed appropriate foot wear 04/23/2024 Rhinitis (ICD-10 - J31.0) 04/23/2024 Pemphigoid, unspecified (ICD-10 - L12.9) 06/27/2024 Acute sinusitis (ICD-10 - J01.90) 06/27/2024 Dermatitis (ICD-10 - L30.9) 07/17/2024 Essential hypertension (ICD-10 - I10) 07/17/2024 Mixed hyperlipidemia (ICD-10 - E78.2) 12/06/2024 Acute URI (ICD-10 - J06.9) 12/06/2024 BMI 25.0-25.9,adult (ICD-10 - Z68.25) 12/07/2024 Osteopenia (ICD-10 - M85.80) 01/10/2024 Hypothyroidism, unspecified (ICD-10 - E03.9) 01/10/2024 Essential hypertension (ICD-10 - I10) 01/10/2024 Stage 3a chronic kidney disease (ICD-10 - N18.31) 07/17/2024 Hypothyroidism, unspecified (ICD-10 - E03.9) 07/17/2024 Stage 3a chronic kidney disease (ICD-10 - N18.31) 01/10/2024 Rash (ICD-10 - R21) 01/10/2024 Dermatitis (ICD-10 - L30.9) 07/17/2024 Vitamin D deficiency (ICD-10 - E55.9) 07/17/2024 Chronic obstructive pulmonary disease, unspecified COPD type (ICD-10 - J44.9) 01/10/2024 Seasonal allergic reaction (ICD-10 - J30.2) Plan Of Treatment Pending Test Test Name Order Date Bone density 12/07/2024 Next Appt Details Provider Name:Costa Orourke ry, 01/15/2025 02:00:00 PM, [address], [address], [place], [id number], Insurance Providers Payer Name Payer Address Payer Phone Subscriber Number Group Number Insured Name Patient Relationship to Insured Coverage Start Date Coverage End Date [employer] [address] [address] [place], [place] [id number] [phone] [id number] TOBIN BELL Self - patient is the insured MEDICAID [employer] [address] [place] [id number] TOBIN BELL Self - patient is the insured Medical (General) History Medical History History ICD Code breast biospy non cancerous Hypertension Hyperlipidemia Diverticulosis anemia with heme + stool. EG D December 2012, gastric ulcers and H. pylori positive Colon polyps COPD, Dx: 2013 Arthritis, both knees Hypothyroidism Surgical History Surgery Date(Month/Year) Colonoscopy 2011 LT Ear, Skin Lesion 12/2012 EGD 12/2012 RT Knee- [facility] 01/09/2017 Pacemaker Placement, [facility] 09/24/2020 Hospitalization History Reason Date(Month/Year) Chest pain- [facility] 09/24- RT Knee Surgery- [facility] 01/09-08/2016 Anemia- [facility] 06/29- Blurred Vision- [facility] 08/2006
--- OUTSIDE RECORDS SUMMARY | 2024-12-23 12:37 | XMS_ITS ---
Author Organization Unknown Vital Signs BpStanding BpSitting BpSupine Date Temperature HeartRate Weight Hei ght Spo2 Respiration Bmi HeadCircumference FieldCount TimeRecorded NeckCircumferen ce WaistCircumference Pulse 136/80 07/17 00:00 :00 97.7 79 157,12. 80 5,5 26.2 6 6 12/05/2024 13:45:00 130/80 06/27 00:00 :00 97.5 72 159,6.4 0 5,5 26.5 2 6 12/05/2024 11:00:00 124/76 04/23 00:00 :00 97.7 65 159,9.6 0 5,5 26.5 6 6 12/05/2024 14:00:00 120/80 03/25 00:00 :00 97.6 67 159,6.4 0 5,5 26.5 2 6 12/05/2024 11:15:00 130/80 02/26 00:00 :00 98.0 70 160,9.6 0 5,5 26.7 2 6 12/05/2024 11:45:00 134/70 01/09 00:00 :00 98.0 66 163,3.2 0 5,5 27.1 5 6 12/05/2024 13:30:00
--- NOTE | 2024-12-23 13:35 | XR_ITS ---
FINAL REPORT TECHNIQUE: Bone densitometry calculations of the lumbar spine and left hip were obtained. CLINICAL HISTORY: SCREENING COMPARISON: 07/12/2022 FINDINGS: Using L1-4, the bone mineral density of the spine is 0.784 g/cm2, corresponding to T-score of -2.4. Using the left hip, the bone mineral density of the femoral neck is 0.517 g/cm2, corresponding to a T-score of -3.5. Using the right hip, the bone mineral density of the femoral neck is 0.671 g/cm2, corresponding to a T-score of -2.2. NOTE: T-score: Standard deviation compared with peak bone mass of young adult mean. *Following the recommendations of the International Society of Bone densitometry, classification of hip BMD is based on the lower of two T-scores; total hip or femoral neck. IMPRESSION: Severe osteopenia of the lumbar spine, stable since prior. Osteoporosis of the left hip, no significant change from prior. Osteopenia of the right hip, no significant change from prior. FRAX was not reported because some of the T-scores are at or above -2.5. Reviewed, Interpreted and Dictated by Miquel Chang MD Transcribed by Meche Nguyen Authenticated and [facility]
== END 2024-12-23 23:59 | disposition home or self-care (01) ==
LOC: RAD 12:34
PROVIDERS: PCP Family Medicine; Visit Provider Family Medicine
DX: M85.88 Other specified disorders of bone density and structure, other site (principal); M81.0 Age-related osteoporosis without current pathological fracture
CPT/HCPCS: 77080